=== PATIENT | female | born 1945 | race Caucasian/White ===

== ENCOUNTER 2016-03-21 13:39 | Emergency (ER) | payer MEDICARE, MEDICAID ==
[~2016-03-21] VITALS: Ht 162.6 cm; Wt 66.7 kg
[~2016-03-21 13:39] MED LIST: ADVAIR 10028 PUFF/IN IN; ADVAIR HFA1 AE1 INH; ALBUTEROL2.5 MG/NEB IN; ANTIDEPRESSANT PO; CHEWABLE ASPIRI81 MG PO; COMBIVENT INH14.7 G1 INH; COMBIVENT INH14.7 GM IN; COZAAR50 MG PO; DELSYM30 MG/5 ML PO; FLEXERIL10 MG PO; FOLIC ACID 1MG T1 MG; HYDROCODONE 7.51 TAB PO; MEGACE LIQUI40 MG/ML PO; POTASSIUM CHLO20 MEQ PO; PROTONIX 40MG T40 MG PO; PROZAC 20MG CAP20 MG PO; REGLAN 10 MG TA10 MG PO; ULTRAM50 MG PO; ZANTAC150 M1 PO; ZOFRAN ODT8 MG PO; [UNRECOGNIZED DRUG - OTHER] PO; [UNRECOGNIZED DRUG - REMARK] PO
[2016-03-21 14:27] LABS: HEMOGLOBIN 9.6 g/dL (12.2-16.2); LYMPH # 1.1 K/mm3 (0.7-4.5); LYMPH % 15.1 % (10-50.0)
--- NOTE | 2016-03-21 14:35 | Emergency Room Report ---
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 N Clinical Suspician of Infection? N Mental Status: 1 - Regular (Normal Baseline) Sepsis Risk:Low Sepsis Risk Have you (or family members/close friends) recently traveled outside the [place]? N If Yes, where/when: Have you had exposure to infectious disease within the past month? TB? Other? Specify: Source patient, RN notes reviewed Exam Limitations no limitations Comment Comes to the ED with nosebleeds for the past 3 days and says she has passed some large clots that have come out of her mouth. Not bleeding at this time. She has been on home O2 for about 3 to 4 years...no pain and no fever. She also is lung cancer survivor from Stage 4 lung cancer. She quit smoking about 4 years ago Cardiac Chest Pain Chest pain indicative of cardiac No ALLERGIES Coded Allergies: latex (Mild, 03/21/16) naproxen (Mild, 03/21/16) Home Medications Reported Medications Fluoxetine Hcl (Prozac 20MG Capsule(Generic)) 1 TAB PO DAILY Losartan Potassium (Cozaar) 1 TAB PO DAILY FLUTICASONE/SALMETEROL (Advair Hfa 230-21 Mcg Inhaler) 1 INH BID Albuterol-Ipratropium (Combivent Inhaler) 1 INH QID Pantoprazole Sodium (Protonix 40MG TAB) 40 MG PO DAILY ALBUTEROL (Albuterol 0.083% Neb) 2.5 MG IN QID #120 NEB HYDROCODONE/ACETAMINOPHEN (Hydrocodon-Acetaminoph 7.5-500) 1-2 TAB PO Q6HP Ranitidine Hydrochloride (Zantac) 150 MG PO DAILY Potassium Chloride 20 MEQ PO DAILY History Medical History General Angina: No [place]: No Hypertension? Yes Hyperlipidemia? No CHF? No COPD? Yes Asthma? Yes Hernia? No CVA? No Seizures? No Diabetes? No UTI? Yes Stones? No GB Disease: No Hepatitis? No Cataracts? No Glaucoma? No MRSA? No TB? No Cancer? Yes Site: RIGHT LUNG Immunization Hx DT/Tetanus 5-10 YRS Flu LAST YEAR Pneumonia 1-4 YRS Surgical Hx Previous Surgery?Y TONSILECTOMY HYSTERECTOMY TUBAL LIGATION LUNG BIOPSY Family History Family Hx Diabetes Yes CAD No Hypertension Yes Hyperlipidemia Yes Cancer Yes TB No Social History Smoking Hx Smoker: Never Smoker Tobacco: No Type N/A Are you/the child exposed to second-hand smoke: No Alcohol Alcohol: No Review of Systems All Other Systems Reviewed and Negative Constitutional see HPI ENT see HPI. Respiratory see HPI Physical Exam Vital Signs Vital Signs Date Time Temp Pulse Resp B/P Pulse O2 O2 Flow FiO2 Ox Delivery Rate 03/21 1502 90 18 131/65 98 3 03/21 1439 88 18 157/82 98 03/21 1346 92 18 161/83 98 03/21 1343 92 18 16183 92 General Appearance normal appearance, WD/WN, no apparent distress Ear, Nose, Throat normal ENT inspection (at this time) Respiratory Status No: respiratory distress. 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 No Results/Orders Laboratory Tests 03/21/16 1403: Sodium 138, Potassium 4.0, Chloride 101, Carbon Dioxide 30, BUN 21 H, Creatinine 1.1 H, Estimated Creat Clear 49 L, Estimated GFR (MDRD) 49 L, Glucose 110 H, Calcium 11.1 H, Total Bilirubin 0.3, AST 18, ALT 29, Alkaline Phosphatase 116, Total Protein 7.6, Albumin 3.4, Globulin 4.2 H, Albumin/ Globulin Ratio 0.8 L, WBC 7.2, RBC 2.81 L, Hgb 9.6 L, Hct 26.6 L, MCV 94.9, RDW 13.5, Plt Count 458 H, MPV 5.6 L, Gran % 80.4 H, Gran # 5.8, Lymphocytes % 15.1, Monocytes % 3.8, Eosinophils % 0.4, Basophils % 0.3, Lymphocytes # 1.1, Monocytes # 0.3, Eosinophils # 0.0, Basophils # 0.0, PUBS MCHC 36.0 H, MCH 34.1 H Current Medication Orders Sig/Juan A Start time Last Medication Dose Route Stop Time Status Admin Iopamidol 100 ML ONCE ONE 03/21 1615 UNV 03/21 IV 03/21 1616 1530 Sodium Chloride 10 ML ONCE ONE 03/21 1615 UNV 03/21 IV 03/21 1616 1530 Sodium Chloride 1,000 ML .STK-MED ONE 03/21 1456 DC IV Sodium Chloride 1,000 ML .Q4H 03/21 1445 AC 03/21 IV 03/21 1844 1458 Sodium Chloride 10 ML PRN PRN 03/21 1445 AC IV 03/22 1443 Sodium Chloride 10 ML PRN PRN 03/21 1430 AC IV 03/22 1417 Orders Procedure Date/time Status CT SCAN REQUEST 03/21 1443 Complete IV SALINE LOCK 03/21 141 Active CBC WITH AUTO DIFF 03/21 141 Complete CHEM 12 PROFILE 03/21 141 Complete XRAY/CT/US XRAY/CT/US CT sinus CT interpretation by discussed w/radiologist Time results known: 1616 CT Results No obvious Nasopharyngeal mass. Unremarkable sinuses. Left nasal septal deviation. 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 Slightly increased soft tissue density at base of the tongue on the right...recommends direct visualization Departure Departure Time of Disposition 1617 Disposition DC Home or Self Care(routine) Clinical Impression Primary Impression: Epistaxis Condition STABLE Referrals Lillie Grewal APRN (Family): 3 Days-Call Office Patient Instructions DI for Nosebleed, Nosebleed, Nosebleeds (Alternative Therapy) Additional Instructions Given Bactroban ointment to coat the nasal passages daily and advised to followup to get direct visualization of base of tongue Discharge Counseling Counseled pt/family regarding diagnosis, test results, medications/RX, home care, follow up needs Prescriptions Current Visit Scripts MUPIROCIN 2% (Bactroban Oint) 0 GM TP DAILY #1 TUBE Ref 3 ED Critical Care Critical Care No If Critical Care minutes are documented, the time involved in the performance of seperately reportable procedures was not counted toward critical care time documented. I directly delivered medical care to this critically ill and/or injured patient. Timely evaluation and treatment was necessary to address the significant organ system(s) dysfunction present in this patient. at 1620
--- NOTE | 2016-03-21 15:58 | RADIOLOGY REPORT PS360 ---
CT MAXILLOFACIAL W/CONTRAST CLINICAL INDICATION: NOSEBLEED ORDERING PHYSICIAN: David Chandra MD PATIENT AGE: 71 years COMPARISON: None FINDINGS: Maxillary sinuses have an unremarkable appearance. There is a small right ojrgito bullosa. The ostiomeatal units are patent. No sinus air-fluid level or sinus mass evident. No obvious nasal or nasopharyngeal mass. There are some asymmetric soft tissue density toward the base of the time on the right of questionable clinical significance. Correlation with direct visualization recommended. No adenopathy, destructive bony lesion, or fracture evident. The orbits have an unremarkable appearance. There is moderate leftward nasal septal deviation with a septal spur projecting toward the left. There is anterior subluxation/dislocation of the right temporomandibular joint. 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 No obvious nasopharyngeal mass. Unremarkable sinuses. 2. Leftward nasal septal deviation. 3. 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 4. Slight increased soft tissue density toward the base of the tongue on the right. Direct visualization recommended
--- NOTE | 2016-03-21 15:58 | RADIOLOGY REPORT PS360 ---
CT MAXILLOFACIAL W/CONTRAST CLINICAL INDICATION: NOSEBLEED ORDERING PHYSICIAN: David Chandra MD PATIENT AGE: 71 years COMPARISON: None FINDINGS: Maxillary sinuses have an unremarkable appearance. There is a small right jorgito bullosa. The ostiomeatal units are patent. No sinus air-fluid level or sinus mass evident. No obvious nasal or nasopharyngeal mass. There are some asymmetric soft tissue density toward the base of the time on the right of questionable clinical significance. Correlation with direct visualization recommended. No adenopathy, destructive bony lesion, or fracture evident. The orbits have an unremarkable appearance. There is moderate leftward nasal septal deviation with a septal spur projecting toward the left. There is anterior subluxation/dislocation of the right temporomandibular joint. 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 No obvious nasopharyngeal mass. Unremarkable sinuses. 2. Leftward nasal septal deviation. 3. 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 4. Slight increased soft tissue density toward the base of the tongue on the right. Direct visualization recommended
[2016-03-21] MEDS ORDERED: BACTROBAN2% TP (16:20)
[2016-03-21 16:25] VITALS: BP 123/70
== END 2016-03-21 16:26 | disposition home or self-care (01) ==
LOC: ER 13:39
PROVIDERS: General Practice
DX: R04.0 Epistaxis (principal); Z85.118 Personal history of other malignant neoplasm of bronchus and lung; I10 Essential (primary) hypertension; J44.9 Chronic obstructive pulmonary disease, unspecified

== ENCOUNTER → 2016-10-26 | Outpatient (CLI) | payer MEDICARE, MEDICAID ==
[~2016-10-26] MED LIST changes: +ADVAIR 250/5028 PUFF IN; +AVELOX400 MG PO; +AZITHROMYCIN250 MG PO; +BACTROBAN2% TP; +CYCLOBENZAPRINE10 MG PO; +DALIRESP500 MCG PO; +FLONASE 50 MCG16 GM; +HYDROCHLOROTHIA25 M1 PO; +HYDROXYZINE HYD50 MG PO; +IRON TABLETS325 MG PO; +LEVAQUIN500 MG PO; +MEDROL 4MG. DOSE4 MG PO; +METOCLOPRAMIDE H5 MG PO; +PREDNISONE 20MG20 MG PO; +VITAMIN D31000 IU PO
--- NOTE | 2016-10-26 12:21 | RADIOLOGY REPORT PS360 ---
BONE DENSITOMETRY(HIP:LT SPINE HISTORY: OSTEOPOROSIS ORDERING PHYSICIAN: TAY OWENS PATIENT AGE: 71 years COMPARISON: None FINDINGS: The BMD measured at the right femoral neck is -5.92 g/cm squared with a T score of -3.2. This is considered osteoporotic according to the World Health Organization criteria. Fracture risk is high. Treatment should be initiated not already prescribed. The density of the lumbar spine from L1 to L4 0.818 g percent meters squared with a T score of -3.0 also consistent with osteoporosis. IMPRESSION: Osteoporosis. Recommend follow-up exam October 2017
== END ==
LOC: RAD 10:00
DX: M81.0 Age-related osteoporosis without current pathological fracture (principal)

== ENCOUNTER 2017-01-09 16:55 | Emergency (ER) | payer MEDICARE, MEDICAID ==
[~2017-01-09] VITALS: Ht 162.6 cm; Wt 64.9 kg
--- NOTE | 2017-01-09 17:48 | Emergency Room Report ---
History of Present Illness Time Seen by 170 Presenting Problem in Triage Pt arrived:Wheelchair Presenting Problem:PT C/O SOA THAT IS WORSE THAN NORMAL. 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 N Clinical Suspician of Infection? N Mental Status: 1 - Regular (Normal Baseline) Sepsis Risk:Possible Sepsis RiskN Have you (or family members/close friends) recently traveled outside the [place]? N If Yes, where/when: Have you had exposure to infectious disease within the past month? N TB? Other? Specify: Comment The patient is brought in by family for dyspnea. Much of the history is obtained from the patient's granddaughter, who is an Intensive Care Unit nurse the [facility]. The patient was hospitalized here in June for an exacerbation of chronic obstructive pulmonary disease. Family does not feel that she ever recovered from that and has been steadily declining with increasing shortness of breath. Initially started as dyspnea on exertion but has been getting worse to where it now takes very minimal exertion to become very short of breath. She has a lot of wheezing with it. She also complains of shakiness and generalized weakness and has fallen several times. She has swelling of her ankles as well. She is oxygen dependent. She is on nebulizers and inhalers at home. She has been on steroids and Levaquin for about a week. She is also maintained on Zithromax. She is a former smoker. ALLERGIES Coded Allergies: latex (Mild, 03/21/16) naproxen (Mild, 03/21/16) Home Medications Active Scripts MUPIROCIN 2% (Bactroban Oint) 0 GM TP DAILY #1 TUBE Ref 3 Prov: 03/21/16 Reported Medications Fluoxetine Hcl (Prozac 20MG Capsule(Generic)) 20 MG PO DAILY Losartan Potassium (Cozaar) 50 MG PO DAILY ALBUTEROL (Albuterol 0.083% Neb) 2.5 MG IN QID #120 NEB FLUTICASONE/SALMETEROL (Advair 250-50 Diskus) 1 PUFF IN BID Roflumilast (Daliresp) 500 MCG PO DAILY Prednisone (Prednisone 20MG) 20 MG PO BID HYDROXYZINE HCL (Hydroxyzine Hydrochloride) 50 MG PO QIDP PRN ANXIETY HYDROCODONE/ACETAMINOPHEN (Hydrocodon-Acetaminoph 7.5-500) 1-2 TAB PO Q6HP Pantoprazole Sodium (Protonix 40MG TAB) 40 MG PO BID Cyclobenzaprine Hcl (Cyclobenzaprine 10MG) 10 MG PO TID PRN MUSCLE SPASMS Fluticasone Propionate (Flonase 50 Mcg Nasal [place]) 1 SPRAY NA BID CHOLECALCIFEROL (VITAMIN D3) (Vitamin D) 1,000 IUNITS PO DAILY HYDROCHLOROTHIAZIDE (Hydrochlorothiazide) 25 MG PO DAILY Ferrous Sulfate (Iron Tablet) 325 MG PO DAILY History Medical History General CAD? No Angina: No [place]: No Hypertension? Yes Hyperlipidemia? No CHF? No DVT? No PE? No COPD? Yes Asthma? Yes Anemia? Yes GERD? Yes Gastric ulcers? No GI Bleed? No Hernia? No Thyroid Problems? No Hypothyroidism? No CVA? No Seizures? No Diabetes? No End Stage Renal Disease? No UTI? Yes Stones? No GB Disease: No Nephritic Syndrome? No Asplenia? No Hepatitis? No Sickle Cell Disease? No Arthritis? No Migraines? No Cataracts? No Glaucoma? No MRSA? No HIV? No TB? No Anxiety? No Depression? No Cancer? Yes Site: RIGHT LUNG More? No Immunization Hx DT/Tetanus 5-10 Years Ago Flu LAST YEAR Pneumonia Received In Past Surgical Hx Previous Surgery?Y TONSILECTOMY HYSTERECTOMY TUBAL LIGATION LUNG BIOPSY Family History Family Hx Diabetes Yes CAD No Hypertension Yes Hyperlipidemia Yes Cancer Yes TB No Social History Smoking Hx Smoker: Former Smoker Tobacco: Yes Type Cigarettes Packs/day < 1 Pack Alcohol Alcohol: No Review of Systems All Other Systems Reviewed and Negative Constitutional see HPI, weakness Respiratory cough, shortness of breath, wheezing Cardiovascular edema Physical Exam Vital Signs Vital Signs Date Time Temp Pulse Resp B/P Pulse O2 O2 Flow FiO2 Ox Delivery Rate 01/09 1900 98.4 99 20 101/63 99 01/09 1821 98.4 99 20 101/63 99 01/09 1702 98.7 106 22 120/65 96 General Appearance no apparent distress, sitting in wheelchair, on oxygen Eye Exam - bilateral eye normal exam, bilateral eye PERRL, bilateral eye EOMI Ear, Nose, Throat hearing grossly normal, normal ENT inspection Neck normal inspection, non-tender, supple, full range of motion Respiratory Status Yes: trachea midline, chest symmetrical. No: respiratory distress. Lung Sounds bilateral: wheezing (few wheezes in the apices). 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 No Results/Orders Laboratory Tests 01/09/17 1746: VBG pH 7.55 H, VBG Total CO2 20.9 L, VBG O2 Sat (Calc) Pending, VBG Base Excess -2.3, Mixed VBG pCO2 23.7 L, Mixed VBG pO2 168.1 H, Mixed VBG HCO3 20.1 L 01/09/17 1725: Lactic Acid 2.0 01/09/17 172: Troponin I < 0.02, B-Natriuretic Peptide 73 01/09/17 172: Sodium 136, Potassium 3.7, Chloride 99, Carbon Dioxide 29, BUN 27 H, Creatinine 1.6 H, Estimated Creat Clear 33 L, Estimated GFR (MDRD) 32 L, Glucose 102, Calcium 8.9, Total Bilirubin 0.5, AST 18, ALT 14, Alkaline Phosphatase 61, Total Protein 7.1, Albumin 3.6, Globulin 3.5 H, Albumin/Globulin Ratio 1.0 L, WBC 9.9, RBC 3.36 L, Hgb 10.2 L, Hct 31.7 L, MCV 94.4, RDW 13.8, Plt Count 427 H , MPV 7.1 L, Gran % 77.2, Gran # 7.7, Lymphocytes % 15.7, Monocytes % 6.7, Eosinophils % 0.3, Basophils % 0.0 L, Lymphocytes # 1.6, Monocytes # 0.7, Eosinophils # 0.0, Basophils # 0.0, PUBS MCHC 31.8, MCH 30.0 Current Medication Orders Sig/Juan A Start time Last Medication Dose Route Stop Time Status Admin Methylprednisolone 0 .STK-MED ONE 01/09 185 DC Sodium Succinate .ROUTE Methylprednisolone 125 MG ONCE ONE 01/09 184 DC 01/09 Sodium Succinate IV 01/09 1846 185 Albuterol/Ipratropium 0 .STK-MED ONE 01/09 171 DC INH Albuterol/Ipratropium 3 ML ONCE ONE 01/09 1715 DC 01/09 INH 01/10 1716 171 Sodium Chloride 10 ML PRN PRN 01/09 171 DCD IV 01/10 170 Orders Procedure Date/time Status ELECTROCARDIOGRAM REQUEST 01/09 175 Active TROPONIN I 01/09 175 Complete BRAIN NATRIURETIC PEPTIDE 01/09 175 Complete VENOUS BLOOD GAS 01/09 174 Active VENOUS BLOOD GAS 01/09 173 Active ARTERIAL BLOOD GAS REQUEST 01/09 170 Active CHEST(2 VIEWS-NOT PORTABLE) 01/09 170 Active RT REQUEST DUONEB 01/09 170 Active IV SALINE LOCK 01/09 1707 Active CULTURE, BLOOD 01/09 1707 Active LACTIC ACID 01/09 170 Complete CBC WITH AUTO DIFF 01/09 1707 Complete CHEM 12 PROFILE 01/09 170 Complete [facility] 01/09 UNK Active CM/EKG CM/EKG Comments EKG interpreted by Marcus Bravo MD: Rhythm: sinus tachycardia Rate: 102 [place]: normal Ectopy: none Conduction: normal ST Segment Changes: none T Wave Changes: none Q Waves: none No evidence of acute ischemia or injury XRAY/CT/US XRAY/CT/US XRAY chest Comment X-ray interpreted by Marcus Bravo M.D.: chronic obstructive pulmonary disease, scarring RIGHT apex, calcified mediastinal lymph node, no change Progress - 6:30 PM: Discussed findings with patient and family. The patient does not want to be admitted to the hospital. She is agreeable to a dose of intravenous steroids and restarting a prednisone taper. She has an appointment with her mechanical process engineer on January 15. Departure Departure Disposition DC Home or Self Care(routine) Clinical Impression Primary Impression: Chronic obstructive pulmonary disease with (acute) exacerbation Condition STABLE Referrals Lillie Grewal APRN (Family) Patient Instructions DI for Chronic Obstructive Pulmonary Disease Additional Instructions Restart prednisone taper as prescribed. See your mechanical process engineer on 01/15/[address] [place]don on Wednesday to arrange follow-up. Continue other medications and treatment as previous. Return if worsening shortness of breath, chest pain, fever. Prescriptions Current Visit Scripts Prednisone (Prednisone 10MG) 10 MG PO DAILY #27 TAB 6 po on days 1-2, then decrease dose by 1 pill per day until gone ED Critical Care Critical Care No at 1951
--- NOTE | 2017-01-09 17:48 | Emergency Room Report ---
History of Present Illness Time Seen by 170 Presenting Problem in Triage Pt arrived:Wheelchair Presenting Problem:PT C/O SOA THAT IS WORSE THAN NORMAL. 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 N Clinical Suspician of Infection? N Mental Status: 1 - Regular (Normal Baseline) Sepsis Risk:Possible Sepsis RiskN Have you (or family members/close friends) recently traveled outside the [place]? N If Yes, where/when: Have you had exposure to infectious disease within the past month? N TB? Other? Specify: Comment The patient is brought in by family for dyspnea. Much of the history is obtained from the patient's granddaughter, who is an Intensive Care Unit nurse the [facility]. The patient was hospitalized here in June for an exacerbation of chronic obstructive pulmonary disease. Family does not feel that she ever recovered from that and has been steadily declining with increasing shortness of breath. Initially started as dyspnea on exertion but has been getting worse to where it now takes very minimal exertion to become very short of breath. She has a lot of wheezing with it. She also complains of shakiness and generalized weakness and has fallen several times. She has swelling of her ankles as well. She is oxygen dependent. She is on nebulizers and inhalers at home. She has been on steroids and Levaquin for about a week. She is also maintained on Zithromax. She is a former smoker. ALLERGIES Coded Allergies: latex (Mild, 03/21/16) naproxen (Mild, 03/21/16) Home Medications Active Scripts MUPIROCIN 2% (Bactroban Oint) 0 GM TP DAILY #1 TUBE Ref 3 Prov: 03/21/16 Reported Medications Fluoxetine Hcl (Prozac 20MG Capsule(Generic)) 20 MG PO DAILY Losartan Potassium (Cozaar) 50 MG PO DAILY ALBUTEROL (Albuterol 0.083% Neb) 2.5 MG IN QID #120 NEB FLUTICASONE/SALMETEROL (Advair 250-50 Diskus) 1 PUFF IN BID Roflumilast (Daliresp) 500 MCG PO DAILY Prednisone (Prednisone 20MG) 20 MG PO BID HYDROXYZINE HCL (Hydroxyzine Hydrochloride) 50 MG PO QIDP PRN ANXIETY HYDROCODONE/ACETAMINOPHEN (Hydrocodon-Acetaminoph 7.5-500) 1-2 TAB PO Q6HP Pantoprazole Sodium (Protonix 40MG TAB) 40 MG PO BID Cyclobenzaprine Hcl (Cyclobenzaprine 10MG) 10 MG PO TID PRN MUSCLE SPASMS Fluticasone Propionate (Flonase 50 Mcg Nasal [place]) 1 SPRAY NA BID CHOLECALCIFEROL (VITAMIN D3) (Vitamin D) 1,000 IUNITS PO DAILY HYDROCHLOROTHIAZIDE (Hydrochlorothiazide) 25 MG PO DAILY Ferrous Sulfate (Iron Tablet) 325 MG PO DAILY History Medical History General CAD? No Angina: No HI: No Hypertension? Yes Hyperlipidemia? No CHF? No DVT? No PE? No COPD? Yes Asthma? Yes Anemia? Yes GERD? Yes Gastric ulcers? No GI Bleed? No Hernia? No Thyroid Problems? No Hypothyroidism? No CVA? No Seizures? No Diabetes? No End Stage Renal Disease? No UTI? Yes Stones? No GB Disease: No Nephritic Syndrome? No Asplenia? No Hepatitis? No Sickle Cell Disease? No Arthritis? No Migraines? No Cataracts? No Glaucoma? No MRSA? No HIV? No TB? No Anxiety? No Depression? No Cancer? Yes Site: RIGHT LUNG More? No Immunization Hx DT/Tetanus 5-10 Years Ago Flu LAST YEAR Pneumonia Received In Past Surgical Hx Previous Surgery?Y TONSILECTOMY HYSTERECTOMY TUBAL LIGATION LUNG BIOPSY Family History Family Hx Diabetes Yes CAD No Hypertension Yes Hyperlipidemia Yes Cancer Yes TB No Social History Smoking Hx Smoker: Former Smoker Tobacco: Yes Type Cigarettes Packs/day < 1 Pack Alcohol Alcohol: No Review of Systems All Other Systems Reviewed and Negative Constitutional see HPI, weakness Respiratory cough, shortness of breath, wheezing Cardiovascular edema Physical Exam Vital Signs Vital Signs Date Time Temp Pulse Resp B/P Pulse O2 O2 Flow FiO2 Ox Delivery Rate 01/09 1900 98.4 99 20 101/63 99 01/09 1821 98.4 99 20 101/63 99 01/09 1702 98.7 106 22 120/65 96 General Appearance no apparent distress, sitting in wheelchair, on oxygen Eye Exam - bilateral eye normal exam, bilateral eye PERRL, bilateral eye EOMI Ear, Nose, Throat hearing grossly normal, normal ENT inspection Neck normal inspection, non-tender, supple, full range of motion Respiratory Status Yes: trachea midline, chest symmetrical. No: respiratory distress. Lung Sounds bilateral: wheezing (few wheezes in the apices). 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 No Results/Orders Laboratory Tests 01/09/17 1746: VBG pH 7.55 H, VBG Total CO2 20.9 L, VBG O2 Sat (Calc) Pending, VBG Base Excess -2.3, Mixed VBG pCO2 23.7 L, Mixed VBG pO2 168.1 H, Mixed VBG HCO3 20.1 L 01/09/17 1725: Lactic Acid 2.0 01/09/17 172: Troponin I < 0.02, B-Natriuretic Peptide 73 01/09/17 172: Sodium 136, Potassium 3.7, Chloride 99, Carbon Dioxide 29, BUN 27 H, Creatinine 1.6 H, Estimated Creat Clear 33 L, Estimated GFR (MDRD) 32 L, Glucose 102, Calcium 8.9, Total Bilirubin 0.5, AST 18, ALT 14, Alkaline Phosphatase 61, Total Protein 7.1, Albumin 3.6, Globulin 3.5 H, Albumin/Globulin Ratio 1.0 L, WBC 9.9, RBC 3.36 L, Hgb 10.2 L, Hct 31.7 L, MCV 94.4, RDW 13.8, Plt Count 427 H , MPV 7.1 L, Gran % 77.2, Gran # 7.7, Lymphocytes % 15.7, Monocytes % 6.7, Eosinophils % 0.3, Basophils % 0.0 L, Lymphocytes # 1.6, Monocytes # 0.7, Eosinophils # 0.0, Basophils # 0.0, PUBS MCHC 31.8, MCH 30.0 Current Medication Orders Sig/Juan A Start time Last Medication Dose Route Stop Time Status Admin Methylprednisolone 0 .STK-MED ONE 01/09 185 DC Sodium Succinate .ROUTE Methylprednisolone 125 MG ONCE ONE 01/09 184 DC 01/09 Sodium Succinate IV 01/09 1846 185 Albuterol/Ipratropium 0 .STK-MED ONE 01/09 171 DC INH Albuterol/Ipratropium 3 ML ONCE ONE 01/09 1715 DC 01/09 INH 01/10 1716 171 Sodium Chloride 10 ML PRN PRN 01/09 171 DCD IV 01/10 170 Orders Procedure Date/time Status ELECTROCARDIOGRAM REQUEST 01/09 175 Active TROPONIN I 01/09 175 Complete BRAIN NATRIURETIC PEPTIDE 01/09 175 Complete VENOUS BLOOD GAS 01/09 174 Active VENOUS BLOOD GAS 01/09 173 Active ARTERIAL BLOOD GAS REQUEST 01/09 170 Active CHEST(2 VIEWS-NOT PORTABLE) 01/09 170 Active RT REQUEST DUONEB 01/09 170 Active IV SALINE LOCK 01/09 1707 Active CULTURE, BLOOD 01/09 1707 Active LACTIC ACID 01/09 170 Complete CBC WITH AUTO DIFF 01/09 1707 Complete CHEM 12 PROFILE 01/09 170 Complete 12 LEAD [facility] 01/09 UNK Active CM/EKG CM/EKG Comments EKG interpreted by Marcus Bravo MD: Rhythm: sinus tachycardia Rate: 102 [place]: normal Ectopy: none Conduction: normal ST Segment Changes: none T Wave Changes: none Q Waves: none No evidence of acute ischemia or injury XRAY/CT/US XRAY/CT/US XRAY chest Comment X-ray interpreted by Marcus Bravo M.D.: chronic obstructive pulmonary disease, scarring RIGHT apex, calcified mediastinal lymph node, no change Progress - 6:30 PM: Discussed findings with patient and family. The patient does not want to be admitted to the hospital. She is agreeable to a dose of intravenous steroids and restarting a prednisone taper. She has an appointment with her circulation director on January 15. Departure Departure Disposition DC Home or Self Care(routine) Clinical Impression Primary Impression: Chronic obstructive pulmonary disease with (acute) exacerbation Condition STABLE Referrals Lillie Grewal APRN (Family) Patient Instructions DI for Chronic Obstructive Pulmonary Disease Additional Instructions Restart prednisone taper as prescribed. See your circulation director on 01/15/[address] Herndon on Wednesday to arrange follow-up. Continue other medications and treatment as previous. Return if worsening shortness of breath, chest pain, fever. Prescriptions Current Visit Scripts Prednisone (Prednisone 10MG) 10 MG PO DAILY #27 TAB 6 po on days 1-2, then decrease dose by 1 pill per day until gone ED Critical Care Critical Care No at 1951
[2017-01-09 17:50] LABS: HEMOGLOBIN 10.2 g/dL (12.2-16.2); LYMPH # 1.6 K/mm3 (0.7-4.5); LYMPH % 15.7 % (10-50.0)
--- OUTSIDE RECORDS SUMMARY | 2017-01-09 17:52 | External Medical Summary Rpt | CCD ---
Author Author , ROCÍO Organization ROCÍO Address Unknown Phone [email or web address] [email or web address] Care Team Providers Care Habilitation Training Specialist Name Role Phone A Ashkan CALDWELL MD PSC, Erasmo Unavailable Unavailable Ashkan CALDWELL MD PSC Joaquin CHRISTIE, Unavailable Unavailable Joaquin CHRISTIE, AMANDA Unavailable Unavailable LOW ARNOLD KIMMY, ARNOLD Unavailable Unavailable KIMMY ATTILI ANI, ATTILI Unavailable Unavailable ANI [facility], [facility] Unavailable Unavailable [facility] Unavailable Unavailable [place], [facility] Unavailable Unavailable MEDICAL GROUP, [facility] Unavailable Unavailable [facility] BROWN DIONICIO, [facility]OWN D[facility]ICIO Unavailable Unavailable [facility], Unavailable Unavailable [facility] Unavailable Unavailable [facility]OC, [facility], Unavailable Unavailable [facility] CROSSFIELD, DANNITA, Unavailable Unavailable CROSSFIELD, DANNITA ANDREI CHARLES, Unavailable Unavailable ANDREI CHARLES [facility], Unavailable Unavailable [facility], [facility] Unavailable Unavailable WOODSON JERICA, Unavailable Unavailable WOODSON JERICA [facility] Unavailable Unavailable INC, [facility] Unavailable Unavailable HOSPITAL P, [facility] [place] HYACINTH, [facility] HYAC[facility] Unavailable Unavailable [place] JAYESH A, Unavailable Unavailable [place] JAYESH A [facility], Unavailable Unavailable [facility] Unavailable Unavailable [facility] Unavailable Unavailable [facility] Unavailable Unavailable [facility], [facility] KILPELA JEA, KILPELA Unavailable Unavailable JEA EVELYN CHARITY, EVELYN CHARITY Unavailable Unavailable [facility] Unavailable Unavailable [facility], [facility] FARZANA ILIR, FARZANA Unavailable Unavailable ILIR ALISIA ANT, ALISIA Unavailable Unavailable ANT OTILIA PAT, OTILIA Unavailable Unavailable PAT RHONA JERICA, RHONA PIZANO Unavailable Unavailable [facility], Unavailable Unavailable PLL[facility], [facility] PAWSAT MAR, PAWSAT Unavailable Unavailable ANNIE GRIMM, Unavailable Unavailable ANNIE LOJA PURDOM MAT, PURDOM Unavailable Unavailable MAT [id number], Unavailable Unavailable [id number] Unavailable Unavailable [id number] [address] [id number], [facility] [id number] [address] [id number] JONAS LEON, JONAS Unavailable Unavailable [facility] Unavailable Un[facility], [facility], Unavailable [facility]available [facility], Unavailable Unavailable [facility] Unavailable [facility]available [facility] Unavailable Unavailable #591, [id number], Unavailable Unavailable [facility] Gabino Carrion Unavailable Enrrique CARRANZA MD, Gabino MOLINA [facility], TRACY Unavailable Unavailable [facility]IS MIG[facility], Unavailable Unavailable [facility] Purpose Continuity of Care Document - 05-02-2007 through 2016 Problems Code Diagnosis DOS Provider Status [id number] MALIGNANT 10-27-2016 [facility] UNS PART ASSOC RIGHT BRONCHUS/ARELY NG J984 OTHER 10-27-2016 [facility] [place] 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 10-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 [facility] PULMONARY [facility] NODULE [place] C3490 MALIGNANT 10-23-2016 [facility] NEOPLASM HOME UNS PART MEDICAL UNS EQUIPME BRONCHUS/ARELY NG J449 CHRONIC 10-23-2016 [facility] OBSTRUCTIVE HOME PULMONARY MEDICAL DISEASE UNS EQUIPME B3749 OTHER 09-23-2016 A Ashkan CALDWELL UROGENITAL PSC CANDIDIASIS G894 CHRONIC 09-23-2016 A Ashkan CALDWELL PAIN PSC SYNDROME J9610 CHRONIC 07-30-2016 [facility] FAIL [facility]OUNDATION HYPOXIA/HYP ERCAPNIA H57503 PERSONAL HX 07-30-2016 [facility] MALIG SERV NEOPLASM FOUNDATION BRONCHUS & LUNG R0602 SHORTNESS 07-07-2016 [facility] OF [facility] P I10 ESSENTIAL 06-19-2016 [facility]IMARY [facility] HYPERTENSIO INC N J209 ACUTE 06-19-2016 [facility] P J440 COPD WITH 06-19-2016 [facility] RESPIRATORY INFECTION J441 CHRONIC 06-19-2016 [facility] OBSTRUCTIVE [facility] P DZ W/EXACERBAT ION N289 DISORDER OF 06-19-2016 [facility], URETER PLLC UNSPECIFIED R0600 DYSPNEA 06-19-2016 [facility] UNSPECIFIED MEM HOSP INC T41644 PERSONAL 06-19-2016 [facility] HISTORY OF PHYSICIANS, NICOTINE PLLC DEPENDENCE Z9981 DEPENDENCE 06-19-2016 [facility] P L OXYGEN R05 COUGH 06-07-2016 [facility] R0989 OTH SPEC SX 06-07-2016 [place] & SIGNS MEDICAL INVLV THE IMAGING ASS CIRC & RESP SYS R918 OTHER 06-07-2016 [facility] NONSPECIFIC MEM HOS[facility] ABNORMAL INC FINDING OF LUNG FIELD Z48479 OTHER LONG 06-07-2016 [facility] TERM [facility]OS[facility] CURRENT INC DRUG THERAPY C3411 MALIGNANT 04-28-2016 [facility] NEOPLASM [facility] UPPER LOBE MEDICAL RT GROUP BRONCHUS/ARELY NG M810 AGE-RELATED 04-28-2016 [facility] OSTE[facility] MEDICAL S W/O GROUP CURRNT PATH FX R222 LOCALIZED 03-22-2016 [facility] MEDICAL MASS AND LUMP TRUNK R040 EPISTAXIS 03-21-2016 [facility] C3410 MALIGNANT 08-09-2015 [facility] NEOPLASM [facility] UPPER LOBE [place] UNS BRONCHUS/ARELY NG R49529 OTHER 08-09-2015 [facility] UNSPEC[facility] H6980 OTHER SPEC 03-18-2015 A Ashkan CALDWELL DISORDERS PSC EUSTACHIAN TUBE UNS EAR Z923 PERSONAL 02-13-2015 [facility] HISTORY OF [facility] IRRADIATION HOSP D649 ANEMIA 12-17-2014 [facility] UNSPECIFIED [facility]ALTH MEDICAL GROUP D44200 CUTANEOUS 11-21-2014 A Ashkan CALDWELL ABSCESS OF PSC LIMB UNSPECIFIED Z23 ENCOUNTER 11-21-2014 A Ashkan CALDWELL FOR PSC IMMUNIZATIO N M546 PAIN IN 11-15-2014 [facility] THORACIC RADIOLOGY SPINE ASSOC U4211RR PATHOLOGICA 11-15-2014 [facility] L FX OTH [facility] SITE [facility]OSP INITIAL ENC FRACTURE 24320 INTRINSIC 11-01-2014 [facility] ASTHMA, PHARMACY UNSPECIFIED LLC 496 CHRONIC 11-01-2014 [facility]CTION [facility] NEC 3384 CHRONIC 10-29-2014 A Ashkan CALDWELL PAIN PSC SYNDROME 51629 UNSPECIFIED 10-29-2014 A Ashkan CALDWELL OTALGIA PSC 7823 EDEMA 10-29-2014 A Ashkan CALDWELL MD [facility] 07417 NAUSEA 10-29-2014 A Ashkan WOODSON MD PSC 7866 SWELLING, 10-21-2014 [facility], [facility] MED[facility] LUMP IN CHEST 1629 MALIGNANT 09-20-2014 [facility] NEOPLASM MEDICAL BRONCHUS&ARELY NG UNSPEC SITE 1623 MALIGNANT 09-17-2014 [facility] NEOPLASM HEALTH UPPER LOBE MEDICAL BRONCHUS OR GROUP LUNG 2859 UNSPECIFIED 09-17-2014 [facility] ANEMIA [facility] GROUP V661 CONVALESCEN 09-17-2014 [facility] CE HEALTH FOLLOWING MEDICAL RADIOTHERAP GROUP Y V662 CONVALESCEN 09-17-2014 [facility] CE HEALTH FOLLOWING MEDICAL CHEMOTHERAP GROUP Y 30132 CHRONIC 09-10-2014 [facility] OBSTRUCTIVE [facility] ASTHMA HOSP UNSPECIFIED 57351 SENILE 09-10-2014 [facility] OSTEOPOROSI [facility] S HOSP V1011 PERSONAL 09-10-2014 [facility] HISTORY [facility] MALIG HOSP NEOPLASM BRONCHUS&[place] NG 22791 ESOPHAGEAL 08-20-2014 A Ashkan CALDWELL REFLUX PSC 87554 DISORDER OF 08-06-2014 [facility] BONE AND [facility] CART[facility]AGE HOS[facility] UNSPECIFIED 18105 LOSS OF 08-06-2014 [facility] HEIGHT [facility] 63402 PATHOLOGIC 06-14-2014 [facility] FRACTURE OF RADIOLOGY VERTEBRAE ASSOC 59785 OTHER 04-30-2014 A Ashkan WILLIAMSON MD PSC PAIN 4011 ESSENTIAL 04-25-2014 [facility] HYPERTENSIO [facility] N, BENIGN HOSP V5412 AFTERCARE 03-02-2014 [facility] FRACTURE LOWER ARM V5878 AFTERCARE 03-02-2014 [facility] FOLLOW PHYSICIANS SURGERY GROUP MUSCULOSKEL SYSTEM NEC V571 OTHER 02-16-2014 [facility] PHYSICAL [facility] THERAPY INC 7248 OTHER 01-26-2014 A Ashkan CALDWELL SYMPTOMS PSC REFERABLE TO BACK 8180 ILL-DEFINED 01-26-2014 A Ashkan RECIO MD PSC FRACTURES OF UPPER LIMB 07910 PAIN IN 01-18-2014 [place] [facility], [facility] FOREARM IMAGING ASS 85848 OTHER 01-18-2014 [facility] CLOSED [facility] FRACTURES HOSPITAL P OF DISTAL END OF RADIUS 24204 OPEN WOUND 01-18-2014 [facility] WITHOUT HOSPITAL P MENTION COMPLICATIO N E8889 UNSPECIFIED 01-18-2014 [facility] P 4019 UNSPECIFIED 01-17-2014 WM ESSENTIAL MEM HOSP HYPERTENSIO INC N 86143 ASTHMA, 01-17-2014 [facility] UNSPECIFIED MEM HOS[facility] , INC UNSPECIFIED STATUS 63956 CLOSED 01-17-2014 [facility] FRACTURE MEM HOSP UNSPECIFIED INC PART RAMUS MANDIBLE 9221 CONTUSION 01-17-2014 WM OF CHEST MEM HOSP WALL INC V1582 PERS HX 01-17-2014 [facility] TOBACCO USE MEM HOSP PRESENTING INC [facility]ZARDS HEALTH 7273 OTHER 01-08-2014 A Ashkan CALDWELL BURSITIS PSC DISORDERS 2662 OTHER 11-13-2013 A Ashkan CALDWELL B-COMPLEX PSC DEFICIENCIE S 5853 CHRONIC 10-30-2013 [facility] KIDNEY [facility] DISEASE INC STAGE III (MODERATE) 7944 NONSPECIFIC 10-30-2013 [facility] MEDICAL RESULTS IMAGING ASS KIDNEY FUNCTION STUDY 1122 CANDIDIASIS 10-26-2013 A Ashkan PALM MD PSC UROGENITAL SITES 2809 UNSPECIFIED 10-26-2013 A Ashkan CALDWELL IRON PSC DEFICIENCY ANEMIA V0481 NEED 10-26-2013 A Ashkan CALDWELL PROPHYLACTI 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 34215 OTHER 06-19-2013 ALISIA ANT DYSPNEA AND RESPIRATORY ABNORMALITI ES 7932 NONSPC ABN 06-19-2013 ALISIA ANT FINDNG RAD&OTH EXAM OTH INTRTHOR ORGN 06820 HYPOXEMIA 05-31-2013 [facility]IS DIONICIO 57245 NAUSEA WITH 05-25-2013 [facility] VOMITING [facility] 4928 OTHER 05-19-2013 [facility] EMPHYSEMA [facility] 7295 PAIN IN 05-19-2013 JONAS LEON SOFT TISSUES OF LIMB 24343 SWELLING OF 05-19-2013 [facility] LIMB [facility] V5869 LONG-TERM 05-19-2013 [facility] (CURRENT) [facility] USE OF HOSP OTHER MEDICATIONS 6828 CELLULITIS 05-15-2013 KILPELA JEA AND ABSCESS OF OTHER SPECIFIED SITE 7881 DYSURIA 05-08-2013 KILPELA JEA 7862 COUGH 04-14-2013 KILPELA JEA 44762 PAIN IN 02-20-2013 [facility] JOINT, [facility] LOWER LEG INC 9597 INJURY 02-09-2013 KILPELA JEA OTHER&UNSPE CIFIED KNEE LEG ANKLE&FOOT 35690 PAIN IN 12-05-2012 A Ashkan DUMONT MD PSC MULTIPLE SITES 50478 BURN TRUNK 12-05-2012 A Ashkan QUIROS MD PSC DEGREE OTHER&MULTI PLE SITES 490 BRONCHITIS 10-12-2012 A Ashkan ROBERTS MD PSC SPECIFIED ACUTE OR CHRONIC 1625 MALIGNANT 09-21-2012 [facility] NEOPLASM [facility] LOWER LOBE HOSP BRONCHUS OR LUNG V671 RADIOTHERAP 09-21-2012 [facility] Y FOLLOW-UP [facility] EXAMINATION V672 CHEMOTHERAP 09-21-2012 [facility] Y [facility]LLOW-UP [facility] EXAMINATION 4660 ACUTE 07-28-2012 A Ashkan CALDWELL BRONCHITIS PSC 3383 NEOPLASM 07-19-2012 BADIN FIR RELATED PAIN ACUTE CHRONIC V580 RADIOTHERAP 07-19-2012 [facility] Y [facility] 93088 CHRONIC 07-09-2012 [facility] RESPIRATORY MEM HOSP FAILURE INC 71343 UNSPECIFIED 06-27-2012 A Ashkan CALDWELL MD PSC OSTEOPOROSI S 93099 WHEEZING 06-27-2012 A Ashkan CALDWELL MD PSC 5271 HYPERTROPHY 04-14-2012 [facility] OF [facility] SALIVARY [facility]OS[facility] GLAND 4779 ALLERGIC 04-11-2012 KILPELA JEA RHINITIS CAUSE UNSPECIFIED 7820 DISTURBANCE 04-11-2012 KILPELA JEA OF SKIN SENSATION 4619 ACUTE 03-23-2012 KILPELA JEA SINUSITIS, UNSPECIFIED 05311 URINARY 03-23-2012 KILPELA JEA FREQUENCY 162.9 162.9 MAL 03-14-2012 [facility] WEND[facility] BRONCH/LUNG Hospital NOS 285.9 285.9 03-14-2012 [facility] ANEMIA NOS [facility] 401.9 401.9 03-14-2012 [facility] HYPERTENSIO [facility] Hospital 780.79 780.79 OTH 03-14-2012 [facility] MALAISE&FAT [facility] IGUE Hospital 787.02 787.02 03-14-2012 [facility] NAUSEA [facility] V5811 ENCOUNTER 02-16-2012 [facility] FOR [facility] ANTINEOPLAS HOSP TIC CHEMOTHERAP Y 5122 POSTOPERATI 01-14-[place] [address] OTHER 01-14-2012 TRACY LUIS MIGUEL PNEUMOTHORA X 5119 UNSPECIFIED 01-07-2012 ATTILI ANI PLEURAL EFFUSION 1970 SECONDARY 01-06-2012 AMANDA LOW MALIGNANT NEOPLASM OF LUNG V550 ATTENTION 12-28-2011 KING CHARITY TO TRACHEOSTOM Y 5180 PULMONARY 12-26-2011 DISANTIS COLLAPSE [place] 52468 EMPHYSEMA 12-26-2011 DISANTIS RESULTING LYNNETTE FROM A PROCEDURE NEC 1639 MALIGNANT 12-25-2011 [place] [facility]OP[facility] UNSPECIFIED SITE V679 UNSPECIFIED 12-25-2011 ATTILI ANI FOLLOW-UP EXAMINATION V8801 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-2011 [facility]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 66216 GENERALIZED 12-17-2011 FARZANA ILIR OSTEOARTHRO SIS UNSPECIFIED SITE 24971 OSTEOARTHRO 12-16-2011 [facility] WHETHER GEN/LOC UNSPEC SITE V711 OBSERVATION 12-09-2011 [facility] FOR [place] SUSPECTED MALIGNANT NEOPLASM 2357 NEOPLASM 12-08-2011 OTILIA PAT UNCERTAIN BEHAVIOR [place] BRONCHUS&[place] [address] COR 12-08-2011 ATTILI ANI ATHEROSLERO UNSPEC TYPE VESSEL [place] APACHE TRIBE OF [place]/TANIKA T 500 COAL 12-08-2011 OTILIA PAT WORKERS PNEUMOCONIO SIS 7969 OTHER 12-08-2011 PURDOM MAT NONSPECIFIC ABNORMAL FINDING 49100 OTHER 11-18-2011 [place] DISEASES OF MEDICAL LUNG NOT IMAGING ASS ELSEWHERE CLASSIFIED 44499 NUCLEAR 10-19-2011 [place] HYACINTH SCLEROSIS 21826 PAIN IN 10-13-2011 [facility] DIONICIO JOINT, SITE UNSPECIFIED V036 NEED PROPH 09-30-2011 RHONA JREICA VACC&INOCUL AT AGAINST PERTUSS ALONE 3319 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 3558 UNSPECIFIED 09-20-2011 [facility] MONONEURITI INC S OF LOWER LIMB 4439 UNSPECIFIED 09-18-2011 [place] [facility]AL [facility] VASCULAR IMAGING ASS DISEASE 19472 ATHEROSLERO 09-08-2011 RHONA JERICA [place] APACHE TRIBE OF [place] ART EXTREMITIES W/ULCERATIO N 8911 OPEN WOUND 09-08-2011 RHONA JERICA OF KNEE LEG AND ANKLE COMPLICATED 27351 CHEST PAIN 09-02-2011 [place] UNSPECIFIED MEDICAL IMAGING ASS 24628 PAINFUL 09-02-2011 [facility] RESPIRATION [facility]OS[facility] INC 8052 CLOS FX 09-02-2011 [facility] DORS MEM HOSP VERTEBRA INC W/O MENTION SP CORD INJURY 99697 OSTEOARTHRO 07-20-2011 EMPI INC S INVLV MX SITES BUT NOT SPEC GEN 7245 UNSPECIFIED 07-20-2011 EMPI INC BACKACHE 65643 ENTHESOPATH 07-10-2011 PAWSAT MAR Y OF UNSPECIFIED SITE 9243 CONTUSION 07-10-2011 WM OF TOE MEM HOSP INC 47768 OBSTRUCTIVE 05-22-2011 ARNOLD KIMMY CHRONIC BRONCHITIS [place] EXACERBATIO N 83816 PAIN IN 05-22-2011 ARNJAG KIMMY JOINT, ANKLE AND FOOT 2382 NEOPLASM OF 09-23-2010 [facility] UNCERTAIN MEDICAL BEHAVIOR OF CLINIC SKIN 4910 SIMPLE 06-03-2010 [facility] CHRONIC MEDICAL BRONCHITIS CLINIC V7612 OTHER 11-21-2009 [facility] [place] SCREENING RADIOLOGY MAMMOGRAM 2720 PURE 11-20-2009 LAB ELO HYPERCHOLES [employer] [employer]EROLEM[employer] 2724 OTHER AND 11-20-2009 [facility] UNSPECIFIED MEDICAL CLINIC HYPERLIPIDE YAAKOV 7242 LUMBAGO 10-30-2009 [facility] MEDICAL CLINIC 00304 OSTEOARTHRO 11-05-2008 PROFESSIONA SIS UNSPEC L REHAB WHETHER ASSOC PSC GEN/LOC LOWER LEG 7197 DIFFICULTY 11-05-2008 PROFESSIONA IN WALKING L REHAB ASSOC PSC 34540 GEN 10-10-2008 [facility] OSTEOARTHRO MEDICAL SIS CLINIC INVOLVING MULTIPLE SITES V4981 ASYMPTOMATI 09-04-2008 [facility] [place] C RADIOLOGY POSTMENOPAU REGINE STATUS 44766 CRAMP OF 08-30-2008 [facility] LIMB [facility]ICAL [facility]INIC 77570 OTHER 09-22-2007 [place], CHRONIC JAYESH A ALLERGIC CONJUNCTIVI TIS 6929 CONTACT 09-19-2007 [facility] DERMATITIS& MEDICAL OTHER CLINIC ECZEMA DUE UNSPEC CAUSE J44.0 CHRONIC OBSTRUCTIVE PULMON DISEASE W ACUTE LOWER RESP INFCT M81.0 AGE-RELATED OSTEOPOROSI S W/O CURRENT PATHOLOGICA L FRACTURE N28.9 DISORDER OF KIDNEY AND URETER, UNSPECIFIED R04.0 EPISTAXIS S22.39XA FRACTURE OF ONE RIB, UNSP SIDE, INIT FOR CLOS FX S62.102A FRACTURE OF UNSP CARPAL BONE, LEFT WRIST, INIT FOR CLOS FX Allergies, Adverse Reactions, Alerts Type Drug Allergy Adverse Reaction to Substance Substance Reaction Severity Naproxen Unknown Unknown Latex Unknown Unknown Medications Na ND Rx Da Fi Fi Am Da Di Ph RX Ph St me C No te ll ll ou ys ag ar # ys at rm s nt no ma ic us Or Da si cy ia de te s n re d FE 00 10 11 30 30 00 RI Ac RR 90 -2 -2 .0 00 TE ti OU 47 3- 4- 00 01 ve S 59 20 20 19 AI JACOBS 16 17 17 02 D LF 0 63 PH AT AR E MA 32 CY 5 MG #3 93 TA 8 BL ET 64 10 11 8. 28 00 RI Ac T 38 -2 -2 00 00 TE ti D2 00 3- 4- 0 01 ve 73 20 20 18 AI 1. 70 17 17 73 D 25 6 85 PH AR MG MA CY (5 0, #3 00 93 0 8 UN IT ) FE 00 09 10 30 30 00 RI Ac RR 90 -0 -0 .0 00 TE ti OU 47 5- 6- 00 01 ve S 59 20 20 19 AI JACOBS 16 17 17 02 D LF 0 63 PH AT AR E MA 32 CY 5 MG #3 93 TA 8 BL ET FE 00 07 08 30 30 00 RI Ac RR 90 -0 -0 .0 00 TE ti OU 47 3- 4- 00 01 ve S 59 20 20 19 AI JACOBS 16 17 17 02 D LF 0 63 PH AT AR E MA 32 CY 5 MG #3 93 TA 8 BL ET FE 00 05 06 30 30 00 RI Ac RO 90 -3 -3 .0 00 TE ti JACOBS 47 0- 0- 00 01 ve L 59 20 20 18 AI 32 18 17 17 15 D 5 2 31 PH MG AR MA TA CY BL ET #3 93 8 FE 00 04 05 30 30 00 RI Ac RO 90 -2 -2 .0 00 TE ti JACOBS 47 6- 6- 00 01 ve L 59 20 20 18 AI 32 18 17 17 15 D 5 2 31 PH MG AR MA TA CY BL ET #3 93 8 64 04 05 8. 28 00 RI Ac T 38 -1 -1 00 00 TE ti D2 00 2- 2- 0 01 ve 73 20 20 15 AI 1. 70 17 17 50 D 25 6 32 PH AR MG MA CY (5 0, #3 00 93 0 8 UN IT ) FE 00 03 04 30 30 00 RI Ac RR 24 -2 -2 .0 00 TE ti OU 50 2- 1- 00 01 ve S 10 20 20 15 AI JACOBS 81 17 17 50 D LF 0 39 PH AR EC MA CY 32 5 #3 MG 93 8 TA BL ET FE 00 02 03 30 30 00 RI Ac RR 24 -1 -1 .0 00 TE ti OU 50 4- 7- 00 01 ve S 10 20 20 15 AI JACOBS 81 17 17 50 D LF 0 39 PH AR EC MA CY 32 5 #3 MG 93 8 TA BL ET 64 01 03 8. 28 00 RI Ac T 38 -3 -0 00 00 TE ti D2 00 1- 3- 0 01 ve 73 20 20 15 AI 1. 70 17 17 50 D 25 6 32 PH AR MG MA CY (5 0, #3 00 93 0 8 UN IT ) FE 57 01 02 30 30 00 RI Ac RR 66 -0 -1 .0 00 TE ti OU 40 6- 0- 00 01 ve S 07 20 20 16 AI JACOBS 00 17 17 56 D LF 1 24 PH AT AR E MA 32 CY 5 MG #3 93 TA 8 BL ET Sa 63 02 0 No li 80 -0 ne 70 4- Lo 10 20 ng Fl 07 13 er us 5 h Ac 10 ti ML ve Sy ri ng e AR 00 09 09 1 12 5 RI 84 PE Ac OM 60 -1 -2 0. TE 99 RE ti ET 31 5- 3- 00 48 Z, ve STOLL 58 20 20 0 AI ZI 55 10 10 D JR NE 8 PH ., -C AR OD MA DO EI CY NE OS 03 CA SY 93 R RU 8 O P # 03 93 AR 00 09 09 1 12 5 RI 84 PE Ac OM 60 -1 -1 0. TE 99 RE ti ET 31 5- 8- 00 48 Z, ve STOLL 58 20 20 0 AI ZI 55 10 10 D JR NE 8 PH ., -C AR OD MA DO EI CY NE OS 03 CA SY 93 R RU 8 O P # 03 93 CH 00 08 08 3 36 6 RI 84 PE Ac ER 60 -2 -2 0. TE 69 RE ti AT 31 4- 7- 00 60 Z, ve US 07 20 20 0 AI SI 55 10 10 D JR N 8 PH ., AC AR MA DO SY CY RU OS P 03 CA 93 R 8 O # 03 93 CH 00 08 08 3 36 6 RI 84 PE Ac ER 60 -0 -2 0. TE 41 RE ti AT 31 2- 1- 00 59 Z, ve US 07 20 20 0 AI SI 55 10 10 D JR N 8 PH ., AC AR MA DO SY CY RU OS P 03 CA 93 R 8 O # 03 93 CH 00 08 08 3 36 6 RI 84 PE Ac ER 60 -0 -1 0. TE 41 RE ti AT 31 2- 5- 00 59 Z, ve US 07 20 20 0 AI SI 55 10 10 D JR N 8 PH ., AC AR MA DO SY CY RU OS P 03 CA 93 R 8 O # 03 93 CH 00 08 08 3 36 6 RI 84 PE Ac ER 60 -0 -0 0. TE 41 RE ti AT 31 2- 9- 00 59 Z, ve US 07 20 20 0 AI SI 55 10 10 D JR N 8 PH ., AC AR MA DO SY CY RU OS P 03 CA 93 R 8 O # 03 93 CH 00 08 08 3 36 6 RI 84 PE Ac ER 60 -0 -0 0. TE 41 RE ti AT 31 2- 3- 00 59 Z, ve US 07 20 20 0 AI SI 55 10 10 D JR N 8 PH ., AC AR MA DO SY CY RU OS P 03 CA 93 R 8 O # 03 93 CH 00 07 07 36 5 RI 84 GR Ac ER 60 -2 -2 0. TE 34 EE ti AT 31 9- 9- 00 78 N ve US 07 20 20 0 AI JE SI 55 10 10 D FF N 8 PH RE AC AR Y MA J SY CY RU P 03 93 8 # 03 93 CH 00 07 07 3 36 6 RI 84 PE Ac ER 60 -0 -2 0. TE 06 RE ti AT 31 6- 3- 00 37 Z, ve US 07 20 20 0 AI SI 55 10 10 D JR N 8 PH ., AC AR MA DO SY CY RU OS P 03 CA 93 R 8 O # 03 93 CH 00 07 07 3 36 6 RI 84 PE Ac ER 60 -0 -1 0. TE 06 RE ti AT 31 6- 7- 00 37 Z, ve US 07 20 20 0 AI SI 55 10 10 D JR N 8 PH ., AC AR MA DO SY CY RU OS P 03 CA 93 R 8 O # 03 93 CH 00 07 07 3 36 6 RI 84 PE Ac ER 60 -0 -1 0. TE 06 RE ti AT 31 6- 2- 00 37 Z, ve US 07 20 20 0 AI SI 55 10 10 D JR N 8 PH ., AC AR MA DO SY CY RU OS P 03 CA 93 R 8 O # 03 93 CH 00 07 07 3 36 6 RI 84 PE Ac ER 60 -0 -0 0. TE 06 RE ti AT 31 6- 6- 00 37 Z, ve US 07 20 20 0 AI SI 55 10 10 D JR N 8 PH ., AC AR MA DO SY CY RU OS P 03 CA 93 R 8 O # 03 93 CH 00 06 06 3 36 6 RI 83 PE Ac ER 60 -1 -2 0. TE 80 RE ti AT 31 4- 9- 00 37 Z, ve US 07 20 20 0 AI SI 55 10 10 D JR N 8 PH ., AC AR MA DO SY CY RU OS P 03 CA 93 R 8 O # 03 93 CH 00 06 06 3 36 6 RI 83 PE Ac ER 60 -1 -2 0. TE 80 RE ti AT 31 4- 4- 00 37 Z, ve US 07 20 20 0 AI SI 55 10 10 D JR N 8 PH ., AC AR MA DO SY CY RU OS P 03 CA 93 R 8 O # 03 93 CH 00 06 06 3 36 6 RI 83 PE Ac ER 60 -1 -1 0. TE 80 RE ti AT 31 4 9- 00 37 Z, ve US 07 20 20 0 AI SI 55 10 10 D JR N 8 PH ., AC AR MA DO SY CY RU OS P 03 CA 93 R 8 O # 03 93 CH 00 06 06 3 36 6 RI 83 PE Ac ER 60 -1 -1 0. TE 80 RE ti AT 31 4- 5- 00 37 Z, ve US 07 20 20 0 AI SI 55 10 10 D JR N 8 PH ., AC AR MA DO SY CY RU OS P 03 CA 93 R 8 O # 03 93 CH 00 05 06 3 36 6 RI 83 PE Ac ER 60 -2 -0 0. TE 51 RE ti AT 31 4 9 00 88 Z, ve US 07 20 20 0 AI SI 55 10 10 D JR N 8 PH ., AC AR MA DO SY CY RU OS P 03 CA 93 R 8 O # 03 93 CH 00 05 06 3 36 6 RI 83 PE Ac ER 60 -2 -0 0. TE 51 RE ti AT 31 4- 4- 00 88 Z, ve US 07 20 20 0 AI SI 55 10 10 D JR N 8 PH ., AC AR MA DO SY CY RU OS P 03 CA 93 R 8 O # 03 93 CH 00 05 05 3 36 6 RI 83 PE Ac ER 60 -2 -3 0. TE 51 RE ti AT 31 4- 0- 00 88 Z, ve US 07 20 20 0 AI SI 55 10 10 D JR N 8 PH ., AC AR MA DO SY CY RU OS P 03 CA 93 R 8 O # 03 93 CH 00 05 05 3 36 6 RI 83 PE Ac ER 60 -2 -2 0. TE 51 RE ti AT 31 4- 5- 00 88 Z, ve US 07 20 20 0 AI SI 55 10 10 D JR N 8 PH ., AC AR MA DO SY CY RU OS P 03 CA 93 R 8 O # 03 93 CH 00 05 05 3 36 6 RI 83 PE Ac ER 60 -0 -2 0. TE 24 RE ti AT 31 4- 0- 00 62 Z, ve US 07 20 20 0 AI SI 55 10 10 D JR N 8 PH ., AC AR MA DO SY CY RU OS P 03 CA 93 R 8 O # 03 93 CH 00 05 05 3 36 6 RI 83 PE Ac ER 60 -0 -1 0. TE 24 RE ti AT 31 4- 5- 00 62 Z, ve US 07 20 20 0 AI SI 55 10 10 D JR N 8 PH ., AC AR MA DO SY CY RU OS P 03 CA 93 R 8 O # 03 93 CH 00 05 05 3 36 6 RI 83 PE Ac ER 60 -0 -1 0. TE 24 RE ti AT 31 4- 0- 00 62 Z, ve US 07 20 20 0 AI SI 55 10 10 D JR N 8 PH ., AC AR MA DO SY CY RU OS P 03 CA 93 R 8 O # 03 93 CH 00 05 05 3 36 6 RI 83 PE Ac ER 60 -0 -0 0. TE 24 RE ti AT 31 4- 4- 00 62 Z, ve US 07 20 20 0 AI SI 55 10 10 D JR N 8 PH ., AC AR MA DO SY CY RU OS P 03 CA 93 R 8 O # 03 93 CH 00 04 04 3 36 6 RI 83 PE Ac ER 60 -1 -2 0. TE 12 RE ti AT 31 2- 9- 00 02 Z, ve US 07 20 20 0 AI SI 55 10 10 D JR N 8 PH ., AC AR MA DO SY CY RU OS P 03 CA 93 R 8 O # 03 93 CH 00 04 04 3 36 6 RI 83 PE Ac ER 60 -1 -2 0. TE 12 RE ti AT 31 2- 3- 00 02 Z, ve US 07 20 20 0 AI SI 55 10 10 D JR N 8 PH ., AC AR MA DO SY CY RU OS P 03 CA 93 R 8 O # 03 93 CH 00 04 04 3 36 6 RI 82 PE Ac ER 60 -1 -1 0. TE 97 RE ti AT 31 2- 8- 00 57 Z, ve US 07 20 20 0 AI SI 55 10 10 D JR N 8 PH ., AC AR MA DO SY CY RU OS P 03 CA 93 R 8 O # 03 93 CH 00 04 04 3 36 6 RI 82 PE Ac ER 60 -1 -1 0. TE 97 RE ti AT 31 2- 3- 00 57 Z, ve US 07 20 20 0 AI SI 55 10 10 D JR N 8 PH ., AC AR MA DO SY CY RU OS P 03 CA 93 R 8 O # 03 93 CH 00 10 11 01 36 6 RI 80 PE Ac ER 60 -1 -0 0. TE 44 RE ti AT 31 6- 5- 00 06 Z, ve US 07 20 20 0 AI SI 55 09 09 D JR N 8 PH ., AC AR M DO SY #3 RU 93 OS P 8 CA R O CH 00 10 10 00 36 6 RI 80 PE Ac ER 60 -1 -2 0. TE 44 RE ti AT 31 6- 2- 00 06 Z, ve US 07 20 20 0 AI SI 55 09 09 D JR N 8 PH ., AC AR M DO SY #3 RU 93 OS P 8 CA R O CH 00 09 10 02 36 9 RI 79 PE Ac ER 60 -1 -0 0. TE 98 RE ti AT 31 4- 8- 00 26 Z, ve US 07 20 20 0 AI SI 55 09 09 D JR N 8 PH ., AC AR M DO SY #3 RU 93 OS P 8 CA R O CH 00 08 09 01 36 9 RI 79 PE Ac ER 60 -2 -2 0. TE 71 RE ti AT 31 5- 4- 00 36 Z, ve US 07 20 20 0 AI SI 55 09 09 D JR N 8 PH ., AC AR M DO SY #3 RU 93 OS P 8 CA R O CH 00 08 09 00 36 9 RI 79 PE Ac ER 60 -2 -1 0. TE 71 RE ti AT 31 5- 0- 00 36 Z, ve US 07 20 20 0 AI SI 55 09 09 D JR N 8 PH ., AC AR M DO SY #3 RU 93 OS P 8 CA R O CH 00 07 08 03 36 9 RI 79 PE Ac ER 60 -2 -2 0. TE 26 RE ti AT 31 0- 7- 00 04 Z, ve US 07 20 20 0 AI SI 55 09 09 D JR N 8 PH ., AC AR M DO SY #3 RU 93 OS P 8 CA R O CH 00 07 08 02 36 9 RI 79 PE Ac ER 60 -2 -1 0. TE 26 RE ti AT 31 0- 3- 00 04 Z, ve US 07 20 20 0 AI SI 55 09 09 D JR N 8 PH ., AC AR M DO SY #3 RU 93 OS P 8 CA R O CH 00 07 07 00 36 6 RI 79 PE Ac ER 60 -1 -3 0. TE 18 RE ti AT 31 4- 0- 00 14 Z, ve US 07 20 20 0 AI SI 55 09 09 D JR N 8 PH ., AC AR M DO SY #3 RU 93 OS P 8 CA R O CH 00 06 07 02 36 6 RI 78 PE Ac ER 60 -1 -1 0. TE 95 RE ti AT 31 6- 6- 00 23 Z, ve US 07 20 20 0 AI SI 55 09 09 D JR N 8 PH ., AC AR M DO SY #3 RU 93 OS P 8 CA R O CH 00 06 07 00 36 9 RI 78 PE Ac ER 60 -1 -0 0. TE 84 RE ti AT 31 6- 2- 00 85 Z, ve US 07 20 20 0 AI SI 55 09 09 D JR N 8 PH ., AC AR M DO SY #3 RU 93 OS P 8 CA R O CH 00 05 06 01 36 9 RI 78 PE Ac ER 60 -1 -1 0. TE 63 RE ti AT 31 2- 8- 00 29 Z, ve US 07 20 20 0 AI SI 55 09 09 D JR N 8 PH ., AC AR M DO SY #3 RU 93 OS P 8 CA R O CH 00 05 06 01 36 9 RI 78 PE Ac ER 60 -1 -0 0. TE 38 RE ti AT 31 2- 4- 00 18 Z, ve US 07 20 20 0 AI SI 55 09 09 D JR N 8 PH ., AC AR M DO SY #3 RU 93 OS P 8 CA R O CH 00 05 05 00 36 9 RI 78 PE Ac ER 60 -1 -2 0. TE 38 RE ti AT 31 2- 1- 00 18 Z, ve US 07 20 20 0 AI SI 55 09 09 D JR N 8 PH ., AC AR M DO SY #3 RU 93 OS P 8 CA R O CH 00 12 01 00 36 9 RI 76 PE Ac ER 60 -1 -3 0. TE 72 RE ti AT 31 8- 0- 00 88 Z, ve US 07 20 20 0 AI SI 55 08 09 D JR N 8 PH ., AC AR M DO SY #3 RU 93 OS P 8 CA R O CH 00 12 01 02 36 9 RI 76 PE Ac ER 60 -1 -1 0. TE 31 RE ti AT 31 8- 5- 00 57 Z, ve US 07 20 20 0 AI SI 55 08 09 D JR N 8 PH ., AC AR M DO SY #3 RU 93 OS P 8 CA R O CH 00 12 01 01 36 9 RI 76 PE Ac ER 60 -1 -0 0. TE 31 RE ti AT 31 8- 1- 00 57 Z, ve US 07 20 20 0 AI SI 55 08 09 D JR N 8 PH ., AC AR M DO SY #3 RU 93 OS P 8 CA R O CH 00 11 12 01 36 12 RI 75 PE Ac ER 60 -2 -1 0. TE 92 RE ti AT 31 1- 8- 00 89 Z, ve US 07 20 20 0 AI SI 55 08 08 D JR N 8 PH ., AC AR M DO SY #3 RU 93 OS P 8 CA R O CH 00 11 12 00 36 12 RI 75 PE Ac ER 60 -2 -0 0. TE 92 RE ti AT 31 1- 4- 00 89 Z, ve US 07 20 20 0 AI SI 55 08 08 D JR N 8 PH ., AC AR M DO SY #3 RU 93 OS P 8 CA R O CH 00 10 11 03 36 12 RI 75 PE Ac ER 60 -0 -2 0. TE 34 RE ti AT 31 9- 0- 00 25 Z, ve US 07 20 20 0 AI SI 55 08 08 D JR N 8 PH ., AC AR M DO SY #3 RU 93 OS P 8 CA R O CH 00 10 11 02 36 12 RI 75 PE Ac ER 60 -0 -0 0. TE 34 RE ti AT 31 9- 7- 00 25 Z, ve US 07 20 20 0 AI SI 55 08 08 D JR N 8 PH ., AC AR M DO SY #3 RU 93 OS P 8 CA R O CH 00 10 10 00 36 12 RI 75 PE Ac ER 60 -0 -2 0. TE 34 RE ti AT 31 9- 3- 00 25 Z, ve US 07 20 20 0 AI SI 55 08 08 D JR N 8 PH ., AC AR M DO SY #3 RU 93 OS P 8 CA R O CH 00 08 10 04 36 10 RI 74 PE Ac ER 60 -1 -0 0. TE 53 RE ti AT 31 1- 9- 00 17 Z, ve US 07 20 20 0 AI SI 55 08 08 D JR N 8 PH ., AC AR M DO SY #3 RU 93 OS P 8 CA R O CH 00 08 09 03 36 10 RI 74 PE Ac ER 60 -1 -2 0. TE 53 RE ti AT 31 1- 6- 00 17 Z, ve US 07 20 20 0 AI SI 55 08 08 D JR N 8 PH ., AC AR M DO SY #3 RU 93 OS P 8 CA R O CH 00 08 09 01 36 12 RI 74 PE Ac ER 60 -1 -1 0. TE 53 RE ti AT 31 1- 1- 00 17 Z, ve US 07 20 20 0 AI SI 55 08 08 D JR N 8 PH ., AC AR M DO SY #3 RU 93 OS P 8 CA R O CH 00 08 08 00 36 12 RI 74 PE Ac ER 60 -1 -2 0. TE 53 RE ti AT 31 1- 8- 00 17 Z, ve US 07 20 20 0 AI SI 55 08 08 D JR N 8 PH ., AC AR M DO SY #3 RU 93 OS P 8 CA R O CH 00 07 08 01 36 9 RI 74 PE Ac ER 60 -2 -1 0. TE 33 RE ti AT 31 9- 4- 00 54 Z, ve US 07 20 20 0 AI SI 55 08 08 D JR N 8 PH ., AC AR M DO SY #3 RU 93 OS P 8 CA R O CH 00 07 08 01 36 9 RI 74 PE Ac ER 60 -1 -0 0. TE 08 RE ti AT 31 0- 1- 00 84 Z, ve US 07 20 20 0 AI SI 55 08 08 D JR N 8 PH ., AC AR M DO SY #3 RU 93 OS P 8 CA R O CH 00 07 07 00 36 9 RI 74 PE Ac ER 60 -1 -1 0. TE 08 RE ti AT 31 0- 7- 00 84 Z, ve US 07 20 20 0 AI SI 55 08 08 D JR N 8 PH ., AC AR M DO SY #3 RU 93 OS P 8 CA R O 10 07 07 00 60 30 RI 74 PE Ac 12 -0 -1 .0 TE 00 RE ti 20 3- 7- 00 59 Z, ve 70 20 20 AI 42 08 08 D JR 0 PH ., AR M DO #3 93 OS 8 CA R O CH 00 06 07 00 24 6 WA 44 PE Ac ER 60 -2 -0 0. L- 69 RE ti AT 31 3- 3- 00 MA 04 Z, ve US 07 20 20 0 RT 9 SI 55 08 08 JR N 8 PH ., AC AR MA DO SY CY RU OS P #5 CA 91 R O 53 06 06 00 14 14 RI 73 NO Ac 01 -0 -1 0. TE 56 BL ti 40 2- 2- 00 67 E ve 54 20 20 0 AI OK 86 08 08 D CH 7 PH AE AR L M L #3 93 8 66 05 06 00 36 14 RI 73 No Ac 99 -0 -0 0. TE 38 t ti 20 5- 5- 00 42 Av ve 25 20 20 0 AI ai 01 08 08 D la 6 PH bl AR e M #3 93 8 60 04 05 01 14 4 [place] 44 No Ac 25 -0 -0 5. L- 67 t ti 80 9- 8- 00 MA 45 Av ve 71 20 20 0 RT 7 ai 41 08 08 la 6 PH bl AR e MA CY #5 91 66 04 05 00 56 28 [place] 44 No Ac 99 -2 -0 0. L- 66 t ti 20 3- 8- 00 MA 87 Av ve 25 20 20 0 RT 5 ai 01 08 08 la 6 PH bl M e 10 -0 49 3 60 04 04 00 36 9 WA 44 No Ac 25 -0 -2 0. L- 67 t ti 80 9- 4- 00 MA 45 Av ve 71 20 20 0 RT 7 ai 41 08 08 la 6 PH bl AR e MA CY #5 91 60 03 04 03 36 9 [place] 44 No Ac 25 -1 -2 0. L- 66 t ti 80 0- 4- 00 MA 81 Av ve 71 20 20 0 RT 0 ai 41 08 08 la 6 PH bl AR e MA CY #5 91 60 03 04 01 36 9 [place] 44 No Ac 25 -1 -1 0. L- 66 t ti 80 0- 7- 00 MA 81 Av ve 71 20 20 0 RT 0 ai 41 08 08 la 6 PH bl AR e MA CY #5 91 60 03 04 00 36 9 [place] 44 No Ac 25 -1 -1 0. L- 66 t ti 80 0- 7- 00 MA 81 Av ve 71 20 20 0 RT 0 ai 41 08 08 la 6 PH bl AR e MA CY #5 91 60 03 04 02 36 9 [place] 44 No Ac 25 -1 -1 0. L- 66 t ti 80 0- 0- 00 MA 81 Av ve 71 20 20 0 RT 0 ai 41 08 08 la 6 PH bl AR e MA CY #5 91 60 01 04 03 36 9 [place] 44 No Ac 25 -3 -0 0. L- 65 t ti 80 1- 7- 00 MA 92 Av ve 71 20 20 0 RT 2 ai 41 08 08 la 6 PH bl AR e MA CY #5 91 60 01 04 02 36 9 [place] 44 No Ac 25 -3 -0 0. L- 65 t ti 80 1- 7- 00 MA 92 Av ve 71 20 20 0 RT 2 ai 41 08 08 la 6 PH bl AR e MA CY #5 91 60 01 03 00 36 9 [place] 44 No Ac 25 -3 -2 0. L- 65 t ti 80 1- 6- 00 MA 92 Av ve 71 20 20 0 RT 2 ai 41 08 08 la 6 PH bl AR e MA CY #5 91 60 12 03 03 36 9 [place] 44 No Ac 25 -2 -2 0. L- 65 t ti 80 8- 6- 00 MA 17 Av ve 71 20 20 0 RT 8 ai 41 07 08 la 6 PH bl AR e MA CY #5 91 60 01 03 01 36 9 [place] 44 No Ac 25 -3 -2 0. L- 65 t ti 80 1- 6- 00 MA 92 Av ve 71 20 20 0 RT 2 ai 41 08 08 la 6 PH bl AR e MA CY #5 91 60 12 03 02 36 9 [place] 44 No Ac 25 -2 -2 0. L- 65 t ti 80 8- 5- 00 MA 17 Av ve 71 20 20 0 RT 8 ai 41 07 08 la 6 PH bl AR e MA CY #5 91 60 12 03 01 36 9 [place] 44 No Ac 25 -2 -2 0. L- 65 t ti 80 8- 4- 00 MA 17 Av ve 71 20 20 0 RT 8 ai 41 07 08 la 6 PH bl AR e MA CY #5 91 Vital Signs 03-14-2012 12:39 Name Value Interpretat Reference Comment ion Range Body 98.1 [degF] Temperature BP 65 mm[Hg] Diastolic BP Systolic 110 mm[Hg] Heart 94 /min Rate/Pulse O2% 95 % Respiratory 16 /min Rate 03-14-2012 11:45 Name Value Interpretat Reference Comment ion Range BP 57 mm[Hg] Diastolic BP Systolic 110 mm[Hg] Heart 78 /min Rate/Pulse O2% 98 % Respiratory 20 /min Rate Results Labs Lab Lab Date Result Refere Interp Status Commen Order Detail nces retati t Range on Comp Metab 1997 Pnl SerPl (11-02-2016 12:04) Comment: [employer] Guidelines Comment: Comment: Stage Description GFR Comment: 1 Normal or High 90+ Comment: 2 Mild decrease 60-89 Comment: 3 Moderate decrease 30-59 Comment: 4 Severe decrease 15-29 Comment: 5 Kidney failure <15 Potassi 4.5 3.5-5.5 complet um 017 mmol/L ed Bld-sCn 12:04 c Sodium 142 132-146 complet Bld-sCn 017 mmol/L ed c 12:04 Creat 1.10 0.60-1. complet Bld-mCn 017 mg/dL 30 ed c 12:04 BUN 16 9-23 complet Bld-mCn 017 mg/dL ed c 12:04 Anion 5.0 3.0-11. complet Gap3 017 mmol/L 0 ed SerPl-s 12:04 Cnc BUN/Cre 14.5 7.0-25. complet at 017 0 ed SerPl 12:04 Albumin 1.7 1.5-2.5 complet /Glob 017 g/dL ed SerPl 12:04 Globuli 2.3 complet n Ur 017 gm/dL ed Elph-mC 12:04 nc GFR/BSA 49 >60 complet .pred 017 mL/min/ ed SerPl 12:04 1.73 MDRD-Ar VRat Bilirub 0.2 0.3-1.2 complet 017 mg/dL ed SerPl-m 12:04 Cnc ALP 138 U/L 25-100 complet SerPl-c 017 ed Cnc 12:04 AST 16 U/L 0-33 complet SerPl-c 017 ed Cnc 12:04 ALT 10 U/L 7-40 complet SerPl w 017 ed 12:04 P-5'-P- cCnc Albumin 3.90 3.20-4. complet 017 g/dL 80 ed SerPl-m 12:04 Cnc Prot 6.2 5.7-8.2 complet SerPl-m 017 g/dL ed Cnc 12:04 Calcium 10.3 8.7-10. complet 017 mg/dL 4 ed XXX-sCn 12:04 c CO2 31.0 20.0-31 complet SerPl-s 017 mmol/L .0 ed Cnc 12:04 Chlorid 106 99-109 complet e 017 mmol/L ed SerPl-s 12:04 Cnc Glucose 92 70-100 complet 017 mg/dL ed Bld-mCn 12:04 c Phosphate SerPl-mCnc (11-02-2016 12:04) Phospha 3.2 2.4-5.1 complet te 017 mg/dL ed SerPl-m 12:04 Cnc Mg Ionized SerPl-mCnc (11-02-2016 12:04) Magnesi 1.7 1.3-2.7 complet um 017 mg/dL ed SerPl-m 12:04 Cnc CBC W Diff pnl,unspecified Bld (11-02-2016 12:04) Neutrop 8.70 1.50-8. complet hils # 017 10*3/mm 30 ed Bld 12:04 3 Auto Monocyt 4.9 % 0.0-12. complet es/leuk 017 0 ed NFr 12:04 Bld Auto Lymphoc 14.2 % 24.0-44 complet ytes/le 017 .0 ed uk NFr 12:04 Bld Auto Neutrop 80.9 % 41.0-71 complet hils/le 017 .0 ed uk NFr 12:04 Bld Auto Platele 477 150-450 complet t # Bld 017 10*3/mm ed Auto 12:04 3 PMV Bld 7.4 fL 6.0-12. complet Auto 017 0 ed 12:04 MCHC 31.1 32.0-36 complet RBC 017 g/dL .0 ed Auto-mC 12:04 nc MCH RBC 29.7 pg 27.0-31 complet Qn 017 .0 ed Auto 12:04 MCV RBC 95.7 fL 80.0-99 complet Auto 017 .0 ed 12:04 RDW RBC 15.5 % 11.3-14 complet 017 .5 ed Auto-Rt 12:04 o Hct VFr 26.8 % 34.5-44 complet Bld 017 .0 ed Auto 12:04 Hgb 8.3 11.5-15 complet Bld-mCn 017 g/dL .5 ed c 12:04 RBC # 11-02- 2.80 3.89-5. complet Bld 017 10*6/mm 14 ed Auto 12:04 3 WBC 10.70 3.50-10 complet nRBC 017 10*3/mm .80 ed cor # 12:04 3 Bld Monocyt 0.50 0.00-1. complet es # 017 10*3/mm 00 ed Bld 12:04 3 Auto Lymphoc 1.50 0.60-4. complet ytes # 017 10*3/mm 80 ed Bld 12:04 3 Auto Comp Metab 1998 Pnl SerPl (10-27-2016 10:33) Comment: [employer] Guidelines Comment: Comment: Stage Description GFR Comment: 1 Normal or High 90+ Comment: 2 Mild decrease 60-89 Comment: 3 Moderate decrease 30-59 Comment: 4 Severe decrease 15-29 Comment: 5 Kidney failure <15 Albumin 1.7 1.5-2.5 complet /Glob 017 g/dL ed SerPl 10:33 Globuli 2.4 complet n Ur 017 gm/dL ed Elph-mC 10:33 nc GFR/BSA 44 >60 complet .pred 017 mL/min/ ed SerPl 10:33 1.73 MDRD-Ar VRat Bilirub 0.2 0.3-1.2 complet 017 mg/dL ed SerPl-m 10:33 Cnc ALP 153 U/L 25-100 complet SerPl-c 017 ed Cnc 10:33 AST 19 U/L 0-33 complet SerPl-c 017 ed Cnc 10:33 ALT 12 U/L 7-40 complet SerPl w 017 ed 10:33 P-5'-P- cCnc Albumin 4.10 3.20-4. complet 017 g/dL 80 ed SerPl-m 10:33 Cnc Prot 6.5 5.7-8.2 complet SerPl-m 017 g/dL ed Cnc 10:33 Calcium 10.7 8.7-10. complet 017 mg/dL 4 ed XXX-sCn 10:33 c CO2 29.0 20.0-31 complet SerPl-s 017 mmol/L .0 ed Cnc 10:33 Chlorid 103 99-109 complet e 017 mmol/L ed SerPl-s 10:33 Cnc Potassi 4.2 3.5-5.5 complet um 017 mmol/L ed Bld-sCn 10:33 c Sodium 140 132-146 complet Bld-sCn 017 mmol/L ed c 10:33 Creat 1.20 0.60-1. complet Bld-mCn 017 mg/dL 30 ed c 10:33 BUN 16 9-23 complet Bld-mCn 017 mg/dL ed c 10:33 Glucose 88 70-100 complet 017 mg/dL ed Bld-mCn 10:33 c Anion 8.0 3.0-11. complet Gap3 017 mmol/L 0 ed SerPl-s 10:33 Cnc BUN/Cre 13.3 7.0-25. complet at 017 0 ed SerPl 10:33 CBC W Diff pnl,unspecified Bld (10-27-2016 10:33) Imm 0.06 0.00-0. complet Granulo 017 10*3/mm 03 ed cytes # 10:33 3 Bld Basophi 09-19-2 0.05 0.00-0. complet ls # 017 10*3/mm 20 ed Bld 10:33 3 Auto Lymphoc -19-2 17.8 % 24.0-44 complet ytes/le 017 .0 ed uk NFr 10:33 Bld Auto Eosinop -19-2 0.16 0.00-0. complet hil # 017 10*3/mm 30 ed Bld 10:33 3 Auto Monocyt 19-2 0.96 0.00-1. complet es # 017 10*3/mm 00 ed Bld 10:33 3 Auto Lymphoc 19-2 1.65 0.60-4. complet ytes # 017 10*3/mm 80 ed Bld 10:33 3 Auto Neutrop 19-2 6.37 1.50-8. complet hils # 017 10*3/mm 30 ed Bld 10:33 3 Auto Imm 19-2 0.6 % 0.0-0.6 complet Granulo 017 ed cytes/l 10:33 euk NFr Bld Basophi 10-27-2 0.5 % 0.0-1.0 complet ls/leuk 017 ed NFr 10:33 Bld Auto Eosinop 19-2 1.7 % 0.0-3.0 complet hil/siobhan 017 ed k NFr 10:33 Bld Auto Monocyt 10-27-2 10.4 % 0.0-12. complet es/leuk 017 0 ed NFr 10:33 Bld Auto Neutrop 10-27-2 69.0 % 41.0-71 complet hils/le 017 .0 ed uk NFr 10:33 Bld Auto Platele 10-27-2 477 150-450 complet t # Bld 017 10*3/mm ed Auto 10:33 3 PMV Bld 10-27-2 9.2 fL 6.0-12. complet Auto 017 0 ed 10:33 RDW RBC 10-27-2 51.8 fl 37.0-54 complet Auto 017 .0 ed 10:33 RDW RBC 10-27-2 14.3 % 11.3-14 complet 017 .5 ed Auto-Rt 10:33 o MCHC 10-27-2 30.4 32.0-36 complet RBC 017 g/dL .0 ed Auto-mC 10:33 nc MCH RBC 30.0 pg 27.0-31 complet Qn 017 .0 ed Auto 10:33 MCV RBC 98.6 fL 80.0-99 complet Auto 017 .0 ed 10:33 Hct VFr 28.3 % 34.5-44 complet Bld 017 .0 ed Auto 10:33 Hgb 8.6 11.5-15 complet Bld-mCn 017 g/dL .5 ed c 10:33 RBC # 10-27-2 2.87 3.89-5. complet Bld 017 10*6/mm 14 ed Auto 10:33 3 WBC 9.25 3.50-10 complet nRBC 017 10*3/mm .80 ed cor # 10:33 3 Bld Creat Bld-mCnc (10-27-2016 10:21) Creat 1.30 0.60-1. complet BldA-mC 017 mg/dL 30 ed nc 10:21 Comment: Serial Number: [id number]: [id number] Comp Metab 1998 Pnl SerPl (04-28-2016 10:59) Comment: [employer] Guidelines Comment: Comment: Stage Description GFR Comment: 1 Normal or High 90+ Comment: 2 Mild decrease 60-89 Comment: 3 Moderate decrease 30-59 Comment: 4 Severe decrease 15-29 Comment: 5 Kidney failure <15 Anion 13.0 3.0-11. complet Gap3 017 mmol/L 0 ed SerPl-s 10:59 Cnc BUN/Cre 10.7 7.0-25. complet at 017 0 ed SerPl 10:59 Albumin 1.7 1.5-2.5 complet /Glob 017 g/dL ed SerPl 10:59 Globuli 2.6 complet n Ur 017 gm/dL ed Elph-mC 10:59 nc GFR/BSA 37 >60 complet .pred 017 mL/min/ ed SerPl 10:59 1.73 MDRD-Ar VRat Bilirub 0.2 0.3-1.2 complet 017 mg/dL ed SerPl-m 10:59 Cnc ALP 03-21-2 99 U/L 25-100 complet SerPl-c 017 ed Cnc 10:59 AST 04-28-2 24 U/L 0-33 complet SerPl-c 017 ed Cnc 10:59 ALT 04-28-2 13 U/L 7-40 complet SerPl w 017 ed 10:59 P-5'-P- cCnc Albumin 4.30 3.20-4. complet 017 g/dL 80 ed SerPl-m 10:59 Cnc Prot 04-28-2 6.9 5.7-8.2 complet SerPl-m 017 g/dL ed Cnc 10:59 Calcium 2 11.4 8.7-10. complet 017 mg/dL 4 ed XXX-sCn 10:59 c CO2 04-28-2 26.0 20.0-31 complet SerPl-s 017 mmol/L .0 ed Cnc 10:59 Chlorid 2 100 99-109 complet e 017 mmol/L ed SerPl-s 10:59 Cnc Potassi 3.6 3.5-5.5 complet um 017 mmol/L ed Bld-sCn 10:59 c Sodium 139 132-146 complet Bld-sCn 017 mmol/L ed c 10:59 Creat 04-28-2 1.40 0.60-1. complet Bld-mCn 017 mg/dL 30 ed c 10:59 BUN 04-28-2 15 9-23 complet Bld-mCn 017 mg/dL ed c 10:59 Glucose 04-28-2 109 70-100 complet 017 mg/dL ed Bld-mCn 10:59 c CBC W Diff pnl,unspecified Bld (04-28-2016 10:59) Monocyt 04-28-2 0.50 0.00-1. complet es # 017 10*3/mm 00 ed Bld 10:59 3 Auto Lymphoc 04-28-2 1.60 0.60-4. complet ytes # 017 10*3/mm 80 ed Bld 10:59 3 Auto Neutrop 21-2 9.80 1.50-8. complet hils # 017 10*3/mm 30 ed Bld 10:59 3 Auto Monocyt 04-28-2 4.4 % 0.0-12. complet es NFr 017 0 ed Bld 10:59 Auto Lymphoc -21-2 13.7 % 24.0-44 complet ytes 017 .0 ed NFr Bld 10:59 Auto Neutrop -21-2 81.9 % 41.0-71 complet hils 017 .0 ed NFr Bld 10:59 Auto Platele --2 456 150-450 complet t # Bld 017 10*3/mm ed Auto 10:59 3 PMV Bld 21-2 7.2 fL 6.0-12. complet Auto 017 0 ed 10:59 MCHC -21-2 31.8 32.0-36 complet RBC 017 g/dL .0 ed Auto-mC 10:59 nc MCH RBC -21-2 30.2 pg 27.0-31 complet Qn 017 .0 ed Auto 10:59 MCV RBC -21-2 94.9 fL 80.0-99 complet Auto 017 .0 ed 10:59 RDW RBC -21-2 14.6 % 11.3-14 complet 017 .5 ed Auto-Rt 10:59 o Hct VFr 04-28-2 27.2 % 34.5-44 complet Bld 017 .0 ed Auto 10:59 Hgb -21-2 8.6 11.5-15 complet Bld-mCn 017 g/dL .5 ed c 10:59 RBC # 03-21-2 2.86 3.89-5. complet Bld 017 10*6/mm 14 ed Auto 10:59 3 WBC -21-2 12.00 3.50-10 complet nRBC 017 10*3/mm .80 ed cor # 10:59 3 Bld Creat Bld-mCnc (04-20-2016 11:47) Creat 04-20-2 1.50 0.60-1. complet BldA-mC 017 mg/dL 30 ed nc 11:47 Comment: Serial Number: [id number] Sales Enablement Analyst: [id number] Creat Bld-mCnc (12-16-2015 11:23) Creat 1.10 0.60-1. complet BldA-mC 016 mg/dL 30 ed nc 11:23 Comment: Serial Number: [id number] Sales Enablement Analyst: [id number] COMPREHENSIVE METABOLIC PANEL (03-14-2012 11:00) Glucose 103 74-106 complet 013 mg/dL ed Bld-mCn 11:00 c BUN 26 7-18 complet Bld-mCn 013 mg/dL ed c 11:00 Creat 1.1 0.6-1.0 complet SerPl-m 013 mg/dL ed Cnc 11:00 ESTIMAT 49 50-200 complet ED 013 ML/MIN ed CREATIN 11:00 INE CLEARAN CE GFR 49 59- complet (ESTIMA 013 ML/MIN ed VIPUL) 11:00 Sodium 136 136-145 complet SerPl-s 013 mmoL/L ed Cnc 11:00 Potassi 3.8 3.5-5.1 complet um 013 mmoL/L ed SerPl-s 11:00 Cnc Chlorid 103 98-107 complet e 013 mmoL/L ed SerPl-s 11:00 Cnc CO2 22 21.0-32 complet SerPl-s 013 mmoL/L .0 ed Cnc 11:00 Calcium 8.9 8.5-10. complet 013 mg/dL 1 ed SerPl-m 11:00 Cnc Prot 6.6 6.4-8.2 complet SerPl-m 013 gm/dL ed Cnc 11:00 Albumin 3.1 3.4-5.0 complet 013 gm/dL ed SerPl-m 11:00 Cnc Globuli 3.5 1.3-3.2 complet n 013 gm/dL ed Ser-mCn 11:00 c Albumin 0.9 UNK 1.1-1.8 complet /Glob 013 ed SerPl-m 11:00 Rto Bilirub 1.3 0.2-1.0 complet 013 mg/dL ed SerPl-m 11:00 Cnc AST 17 U/L 15-37 complet SerPl-c 013 ed Cnc 11:00 ALT 25 U/L 30-65 complet SerPl-c 013 ed Cnc 11:00 ALP 146 U/L 50-136 complet SerPl-c 013 ed Cnc 11:00 CBC with AUTO DIFF (03-14-2012 11:00) WBC # 02-04-2 7.5 4.8-10. complet Bld 013 K/MM3 8 ed Auto 11:00 RBC # 02-04-2 3.43 4.2-5.4 complet Bld 013 M/mm3 ed Auto 11:00 Hgb 02-04-2 10.1 12.2-16 complet Bld-mCn 013 g/dL .2 ed c 11:00 Hct Fr --2 30.5 % 37.0-47 complet Bld 013 .0 ed 11:00 MCV RBC -04-2 88.9 fl 82.2-97 complet 013 .8 ed 11:00 MCH RBC 04-2 29.5 pg 27-31.2 complet Qn 013 ed Auto 11:00 MEAN 03-14-2 33.2 31.8-35 complet CORPUSC 013 g/dl .4 ed ULAR 11:00 HGB CONC RDW RBC -04-2 18.2 % 11.5-17 complet Auto 013 .5 ed 11:00 Platele -04-2 426 142-424 complet t Bld 013 K/mm3 ed Ql 11:00 Manual MEAN 03-14-2 7.5 fl 7.4-10. complet PLATELE 013 4 ed T 11:00 VOLUME Granulo -04-2 77.8 % 37.0-80 complet cytes 013 .0 ed Fr Bld 11:00 Auto LYMPH % -04-2 19.3 % 10-50.0 complet 013 ed 11:00 Monocyt 02-04-2 2.3 % 1.7-9.3 complet es Fr 013 ed Bld 11:00 Auto Eosinop 02-04-2 0.3 % 0.1-12. complet hil Fr 013 0 ed Bld 11:00 Auto Basophi 02-04-2 0.3 % 0.1-2.0 complet ls Fr 013 ed Bld 11:00 Auto Granulo 02-04-2 5.9 1.8-7.8 complet cytes # 013 K/mm3 ed Bld 11:00 Auto Lymphoc 02-04-2 1.5 0.7-4.5 complet ytes Fr 013 K/mm3 ed Bld 11:00 Auto Monocyt 02-04-2 0.2 0.1-1.0 complet es # 013 K/mm3 ed Bld 11:00 Auto Eosinop 03-14- 0.0 0.0-0.4 complet hil # 013 K/mm3 ed Bld 11:00 Auto Basophi 03-14- 0.0 0-0.2 complet ls # 013 K/MM3 ed Bld 11:00 Auto Procedures Procedure DOS Code Location Performer Comment [facility] [address] [facility] 2 Y Y PLEURAL [facility] BIOPSY [facility] [address] [facility] LUNG 2 Y Y [facility]OPSY [facility] SIMPLE [address] [facility] 2 Y Y OF OTHER HOSPITAL HOSPITAL LYMPHATIC STRUCTURE Encounters Encounter Start End Date Code Location Performer Type Date [facility] 7 7 [facility] - 7 7 [facility] WM - 7 7 [facility] - [facility] - 7 7 [facility] - [facility] - [facility] - [facility] 5 5 [facility] 5 5 [facility] CENTRAL - 5 5 [facility] CENTRAL [facility] 5 5 [facility] CENTRAL - 5 5 [facility] CENTRAL - 5 5 [facility] CENTRAL [facility] 5 5 [facility] WM - 5 5 [facility] WM - 5 5 [facility] WM - 5 5 [facility] WM - 4 4 [facility] WM - 4 4 [facility] WM - 4 4 [facility] WM - 4 4 [facility] CENTRAL [facility] 4 4 [facility] WM - [facility] CENTRAL [facility] 4 4 [facility] CENTRAL [facility] 4 4 [facility] WM - 4 4 [facility] CENTRAL [facility] 4 4 [facility] WM - 4 4 [facility] CENTRAL [facility] 3 3 [facility] CENTRAL - 3 3 [facility] CENTRAL [facility] 3 3 [facility] CENTRAL [facility] 3 3 [facility] Emergency MOMO Carrion (ER) 3 11:19 3 12:40 [facility] 2 [facility] Y [facility] UNIVERS[facility] - 2 2 Y [facility] UNIVERSIT - 2 2 Y [facility] UNIVERSIT - 2 2 Y [facility] - 2 2 Y [facility] UNIVERSIT [facility] 2 2 Y [facility] UNIVERSIT - 2 2 Y [facility] UNIVERSIT - 2 2 Y [facility] UNIVERSIT [facility] 2 2 Y [facility] UNIVERSIT - 2 2 Y [facility] WM - 2 2 [facility] WM - 2 2 [facility] WM - 2 2 [facility] WM - 2 2 [facility] WM - 2 2 [facility] WM [facility] 2 2 [facility] WM - 2 2 [facility] [place] - 0 0 [facility] 9 [facility] 8 8 [facility]
--- OUTSIDE RECORDS SUMMARY | 2017-01-09 17:52 | External Medical Summary Rpt | CCD ---
Author Author , ROCÍO Organization ROCÍO Address Unknown Phone [email or web address] Care Team Providers Care Shell Coremaker Name Role Phone A Ashkan CALDWELL MD PSC, Erasmo Unavailable Unavailable Ashkan CALDWELL MD PSC Joaquin CHRISTIE, Unavailable Unavailable Joaquin CHRISTIE, AMANDA Unavailable Unavailable LOW ARNOLD KIMMY, ARNOLD Unavailable Unavailable KIMMY ATTILI ANI, ATTILI Unavailable Unavailable ANI [facility], [facility] Unavailable Unavailable [facility] Unavailable Unavailable [place], [facility] Unavailable Unavailable MEDICAL GROUP, [facility] Unavailable Unavailable [facility], [facility] BROWN DIONIC[facility], [facility] Unavailable Unavailable [facility], Unavailable Unavailable [facility] Unavailable Unavailable [facility], [facility], Unavailable Unavailable [facility] CROSSFIELD, DANNITA, Unavailable Unavailable CROSSFIELD, DANNITA ANDREI CHARLES, Unavailable Unavailable ANDREI CHARLES [facility], Unavailable Unavailable [facility], [facility] Unavailable Unavailable WOODSON JERICA, Unavailable Unavailable WOODSON JERICA [facility] Unavailable Unavailable INC, [facility] Unavailable Unavailable HOSPITAL P, [facility] P [facility] HYACINTH, [facility] Unavailable Unavailable [facility] JAYESH A, Unavailable Unavailable [facility] A [facility], Unavailable Unavailable [facility] Unavailable Unavailable [facility], Unavailable Unavailable [facility] Unavailable Unavailable IM[facility]ING [facility], [facility] KILPELA JEA, KILPELA Unavailable Unavailable JEA EVELYN CHARITY, EVELYN CHARITY Unavailable Unavailable [facility] Unavailable Unavailable HOLDING, [facility] FARZANA ILIR, FARZANA Unavailable Unavailable ILIR ALISIA ANT, ALISIA Unavailable Unavailable ANT OTILIA PAT, OTLIIA Unavailable Unavailable PAT RHONA JERICA, RHONA PIZANO Unavailable Unavailable [facility], Unavailable Unavailable PLL[facility], [facility] PAWSAT MAR, PAWSAT Unavailable Unavailable ANNIE GRIMM, Unavailable Unavailable ANNIE LOJA PURDOM MAT, PURDOM Unavailable Unavailable MAT [id number], Unavailable Unavailable [id number] Unavailable Unavailable [id number] [address] [id number], [facility] [id number] # [id number] JONAS LEON, JONAS Unavailable Unavailable [facility] Unavailable Unavailable E[facility], [facility], Unavailable Unavailable [facility], Unavailable Unavailable [facility] Unavailable Unavailable [facility]available Unavailable #591, [id number], Unavailable Unavailable [facility] Gabino Carrion Unavailable Enrrique CARRANZA MD, Gabino MOLINA [facility], TRACY Unavailable Unavailable LUIS MIGUEL [facility], Unavailable Unavailable [facility] Purpose Continuity of Care Document - 05-02-2007 through 2016 Problems Code Diagnosis DOS Provider Status [id number] MALIGNANT 10-27-2016 [facility] UNS PART ASSOC RIGHT BRONCHUS/ARELY NG J984 OTHER 10-27-[address] 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 UNS EQUIPME B3749 OTHER 09-23-2016 A Ashkan CALDWELL UROGENITAL PSC CANDIDIASIS G894 CHRONIC 09-23-2016 A Ashkan CALDWELL PAIN PSC SYNDROME J9610 CHRONIC 07-30-2016 CT [facility] RESPIRATORY SERV FAIL UNS FOUNDATION HYPOXIA/HYP ERCAPNIA B12801 PERSONAL HX 07-30-2016 CT MEDICAL OTH MALIG SERV NEOPLASM FOUNDATION BRONCHUS & LUNG R0602 SHORTNESS 07-07-2016 [facility] P I10 ESSENTIAL 06-19-2016 [facility] PRIMARY [facility] HYPERTENSIO INC N J209 ACUTE 06-19-2016 [facility] BRONCHITIS [facility] P J440 COPD WITH 06-19-2016 [facility] RESPIRATORY INFECTION J441 CHRONIC 06-19-2016 [facility] OBSTRUCTIVE [facility] P DZ W/EXACERBAT ION N289 DISORDER OF 06-19-2016 [facility], URETER PLLC UNSPECIFIED R0600 DYSPNEA 06-19-2016 [facility] UNSPECIFIED MEM HOSP INC X16519 PERSONAL 06-19-2016 [facility] HISTORY OF PHYSICIANS, NICOTINE PLLC DEPENDENCE Z9981 DEPENDENCE 06-19-2016 [facility] ON [facility] P L OXYGEN R05 COUGH 06-07-2016 [facility] R0989 OTH SPEC SX 06-07-2016 [facility] & SIGNS MEDICAL INVLV THE IMAGING ASS CIRC & RESP SYS R918 OTHER 06-07-2016 [facility] NONSPECIFIC MEM HOSP ABNORMAL INC FINDING OF LUNG FIELD H75062 OTHER LONG 06-07-2016 [facility] TERM MEM HOSP CURRENT INC DRUG THERAPY C3411 MALIGNANT 04-28-2016 [facility] NEOPLASM [facility] UPPER LOBE MEDICAL RT GROUP BRONCHUS/ARELY NG M810 AGE-RELATED 04-28-2016 [facility] OSTEOPOROSI MEDICAL S W/O GROUP CURRNT PATH FX R222 LOCALIZED 03-22-2016 [facility] S[facility]LL[facility] MEDICAL MASS AND LUMP TRUNK R040 EPISTAXIS 03-21-2016 [facility] C3410 MALIGNANT 08-09-2015 [facility] NEOPLASM [facility] UPPER LOBE [place] UNS BRONCHUS/ARELY NG K72888 OTHER 08-09-2015 [facility]OSIS [facility] SITE [facility] UNSPECIFIED H6980 OTHER SPEC 03-18-2015 A Ashkan CALDWELL DISORDERS PSC EUSTACHIAN TUBE UNS EAR Z923 PERSONAL 02-13-2015 [facility] HISTORY OF [facility] IRRADIATION HOSP D649 ANEMIA 12-17-2014 [facility] UNSPECIFIED [facility]ALTH MEDICAL GROUP S55473 CUTANEOUS 11-21-2014 A Ashkan CALDWELL ABSCESS OF PSC LIMB UNSPECIFIED Z23 ENCOUNTER 11-21-2014 A Ashkan CALDWELL FOR PSC IMMUNIZATIO N M546 PAIN IN 11-15-2014 [facility] THORACIC RADIOLOGY SPINE ASSOC H4025IE PATHOLOGICA 11-15-2014 [facility] L FX OTH [facility] SITE HOSP INITIAL ENC FRACTURE 23022 INTRINSIC 11-01-2014 [facility] ASTHMA, PHARMACY UNSPECIFIED LLC 496 CHRONIC 11-01-2014 [facility] OBSTRUCTION [facility] NEC 3384 CHRONIC 10-29-2014 A Ashkan CALDWELL PAIN PSC SYNDROME 90135 UNSPECIFIED 10-29-2014 A Ashkan CALDWELL OTALGIA PSC 7823 EDEMA 10-29-2014 A Ashkan CALDWELL MD [facility] 37727 NAUSEA 10-29-2014 A Ashkan WOODSON MD PSC 7866 SWELLING, 10-21-2014 [facility] MASS, OR MEDCIAL LUMP IN CHEST 1629 MALIGNANT 09-20-2014 [facility] NEOPLASM MEDICAL BRONCHUS&ARELY NG UNSPEC SITE 1623 MALIGNANT 09-17-2014 [facility] NEOPLASM HEALTH UPPER LOBE MEDICAL BRONCHUS OR GROUP LUNG 2859 UNSPECIFIED 09-17-2014 [facility] ANEMIA HEALTH MEDICAL GROUP V661 CONVALESCEN 09-17-2014 [facility] CE HEALTH FOLLOWING MEDICAL RADIOTHERAP GROUP Y V662 CONVALESCEN 09-17-2014 [facility] CE HEALTH FOLLOWING MEDICAL CHEMOTHERAP GROUP Y 96386 CHRONIC 09-10-2014 [facility] OBSTRUCTIVE [facility] ASTHMA HOSP UNSPECIFIED 39128 SENILE 09-10-2014 [facility] OSTEOPOROSI [facility] S HOSP V1011 PERSONAL 09-10-2014 [facility] HISTORY [facility] MALIG HOSP [place]OPLASM BRONCHUS&[place] [address] ESOPHAGEAL 08-20-2014 A Ashkan CALDWELL REFLUX PSC 83231 DISORDER OF 08-06-2014 [facility] BONE AND [facility] UNSPECIFIED 44545 LOSS OF 08-06-2014 [facility] HEIGHT [facility] 29362 PATHOLOGIC 06-14-2014 [facility] FRACTURE OF RADIOLOGY VERTEBRAE ASSOC 94668 OTHER 04-30-2014 A Ashkan WILLIAMSON MD PSC PAIN 4011 ESSENTIAL 04-25-2014 [facility] HYPERTENSIO [facility] N, BENIGN HOSP V5412 AFTERCARE 03-02-2014 [facility] TRA[facility] IM[facility] FRACTURE LOWER ARM V5878 AFTERCARE 03-02-2014 [facility] FOLLOW PHYSICIANS SURGERY GROUP MUSCULOSKEL SYSTEM NEC V571 OTHER 02-16-2014 [facility] PHYSICAL [facility] THERAPY INC 7248 OTHER 01-26-2014 A Ashkan CALDWELL SYMPTOMS PSC REFERABLE TO BACK 8180 ILL-DEFINED 01-26-2014 A Ashkan RECIO MD PSC FRACTURES OF UPPER LIMB 43239 PAIN IN 01-18-2014 [facility] JOINT, MEDICAL FOREARM IMAGING ASS 05769 OTHER 01-18-2014 [facility] CLOSED [facility]OSPITAL P OF DISTAL END OF RADIUS 56623 OPEN WOUND 01-18-2014 [facility] WITHOUT HOSPITAL P MENTION COMPLICATIO N E8889 UNSPECIFIED 01-18-2014 [facility] P 4019 UNSPECIFIED 01-17-2014 WM ESSENTIAL MEM HOSP HYPERTENSIO INC N 69451 ASTHMA, 01-17-2014 [facility] UNSPECIFIED MEM HOSP , INC UNSPECIFIED STATUS 25521 CLOSED 01-17-2014 [facility] FRACTURE MEM HOSP UNSPECIFIED INC PART RAMUS MANDIBLE 9221 CONTUSION 01-17-2014 WM OF CHEST MEM HOSP WALL INC V1582 PERS HX 01-17-2014 WM TOBACCO USE MEM HOSP PRESENTING INC [facility] 7273 OTHER 01-08-2014 A Ashkan CALDWELL BURSITIS PSC DISORDERS 2662 OTHER 11-13-2013 A Ashkan CALDWELL B-COMPLEX PSC DEFICIENCIE S 5853 CHRONIC 10-30-2013 [facility] KIDNEY [facility] DISEASE INC STAGE III (MODERATE) 7944 NONSPECIFIC 10-30-2013 [facility] MEDICAL RESULTS IMAGING ASS KIDNEY FUNCTION STUDY 1122 CANDIDIASIS 10-26-2013 A Ashkan PALM MD PSC UROGENITAL SITES 2809 UNSPECIFIED 10-26-2013 A Ashkan CALDWELL IRON PSC DEFICIENCY ANEMIA V0481 NEED 10-26-2013 A Ashkan CALDWELL PROPHYLACTI [facility] C VACCINATION &INOCULATIO N FLU 32145 OBSTRUCTIVE 09-28-2013 MALCOM CHRONIC DIONICIO BRONCHITIS WITHOUT EXACERBAT 02614 SHORTNESS 09-28-2013 TZOUANAKIS OF BREATH DIONICIO 53470 OTHER 09-25-2013 BADIN FIR NONSPECIFIC ABNORMAL FINDING OF LUNG FIELD 83215 UNSPECIFIED 07-24-2013 [facility], VAGINITIS LLC AND VULVOVAGINI TIS 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 7821 RASH AND 06-30-2013 KILPELA JEA OTHER NONSPECIFIC SKIN ERUPTION 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 12879 OTHER 06-19-2013 ALISIA ANT DYSPNEA AND RESPIRATORY ABNORMALITI ES 7932 NONSPC ABN 06-19-2013 ALISIA ANT FINDNG RAD&OTH EXAM OTH INTRTHOR ORGN 63204 HYPOXEMIA 05-31-2013 TZOUANAKIS DIONICIO 78884 NAUSEA WITH 05-25-2013 [facility] VOMITING [facility] 4928 OTHER 05-19-2013 [facility] EMPHYSEMA [facility] 7295 PAIN IN 05-19-2013 JONAS LEON SOFT TISSUES OF LIMB 13405 SWELLING OF 05-19-2013 [facility] LIMB [facility] V5869 LONG-TERM 05-19-2013 [facility] (CURRENT) [facility] USE OF HOSP OTHER MEDICATIONS 6828 CELLULITIS 05-15-2013 KILPELA JEA AND ABSCESS OF OTHER SPECIFIED SITE 7881 DYSURIA 05-08-2013 KILPELA JEA 7862 COUGH 04-14-2013 KILPELA JEA 58357 PAIN IN 02-20-2013 [facility] JOINT, [facility] LOWER LEG INC 9597 INJURY 02-09-2013 KILPELA JEA OTHER&UNSPE CIFIED KNEE LEG ANKLE&FOOT 36469 PAIN IN 12-05-2012 A Ashkan DUMONT MD PSC MULTIPLE SITES 92683 BURN TRUNK 12-05-2012 A Ashkan QUIROS MD PSC DEGREE OTHER&MULTI PLE SITES 490 BRONCHITIS 10-12-2012 A Ashkan ROBERTS MD PSC SPECIFIED ACUTE OR CHRONIC 1625 MALIGNANT 09-21-2012 [facility] NEOPLASM [facility] LOWER LOBE HOSP BRONCHUS OR LUNG V671 RADIOTHERAP 09-21-2012 [facility] Y FOLLOW-UP [facility] H[facility]P EXAMINATION V672 CHEMOTHERAP 09-21-2012 [facility] Y FOLLOW-UP [facility] EXAMINATION 4660 ACUTE 07-28-2012 A Ashkan CALDWELL BRONCHITIS PSC 3383 NEOPLASM 07-19-2012 BADIN FIR RELATED PAIN ACUTE CHRONIC V580 RADIOTHERAP 07-19-2012 [facility] Y [facility] 20281 CHRONIC 07-09-2012 [facility] RESPIRATORY MEM HOSP FAILURE INC 44733 UNSPECIFIED 06-27-2012 A Ashkan CALDWELL MD PSC OSTEOPOROSI S 37210 WHEEZING 06-27-2012 A Ashkan CALDWELL MD PSC 5271 HYPERTROPHY 04-14-2012 [facility] OF [facility] SALIVARY HOSP GLAND 4779 ALLERGIC 04-11-2012 KILPELA JEA RHINITIS CAUSE UNSPECIFIED 7820 DISTURBANCE 04-11-2012 KILPELA JEA OF SKIN SENSATION 4619 ACUTE 03-23-2012 KILPELA JEA SINUSITIS, UNSPECIFIED 14247 URINARY 03-23-2012 KILPELA JEA FREQUENCY 162.9 162.9 MAL 03-14-2012 Burton WENDY [facility] BRONCH/LUNG Hospital NOS 285.9 285.9 03-14-2012 Burton ANEMIA NOS [facility] 401.9 401.9 03-14-2012 Burton HYPERTENSIO [facility] Hospital 780.79 780.79 OTH 03-14-2012 Burton MALAISE&FAT [facility] IGUE Hospital 787.02 787.02 03-14-2012 Burton NAUSEA [facility] V5811 ENCOUNTER 02-16-2012 [facility] FOR [facility] ANTINEOPLAS HOSP TIC CHEMOTHERAP Y 5122 POSTOPERATI 01-14-2012 [facility] 22212 OTHER 01-14-2012 TRACY LUIS MIGUEL PNEUMOTHORA X 5119 UNSPECIFIED 01-07-2012 ATTILI ANI PLEURAL EFFUSION 1970 SECONDARY 01-06-2012 AMANDA LOW MALIGNANT NEOPLASM OF LUNG V550 ATTENTION 12-28-2011 KING CHARITY TO TRACHEOSTOM Y 5180 PULMONARY 12-26-2011 DISANTIS COLLAPSE LYNN[place]TE 56829 EMPHYSEMA 12-26-2011 DISANTIS RESULTING LYNNETTE FROM A PROCEDURE NEC 1639 MALIGNANT 12-25-2011 [facility] [facility] UNSPECIFIED SITE V679 UNSPECIFIED 12-25-2011 ATTILI ANI FOLLOW-UP EXAMINATION 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 76946 GENERALIZED 12-17-2011 FARZANA ILIR OSTEOARTHRO SIS UNSPECIFIED SITE 88452 OSTEOARTHRO 12-16-2011 [facility] WHETHER GEN/LOC UNSPEC SITE V711 OBSERVATION 12-09-2011 WOODSON FOR JER[place] SUSPECTED MALIGNANT NEOPLASM 2357 NEOPLASM 12-08-2011 OTILIA PAT UNCERTAIN BEHAVIOR [place] BRONCHUS&[place] [address] COR 12-08-2011 ATTILI ANI ATHEROSLERO UNSPEC TYPE VESSEL [place]/TANIKA T 500 COAL 12-08-2011 OTILIA PAT WORKERS PNEUMOCONIO SIS 7969 OTHER 12-08-2011 PURDOM MAT NONSPECIFIC ABNORMAL FINDING 78078 OTHER 11-18-2011 [facility] DISEASES OF MEDICAL LUNG NOT IMAGING ASS ELSEWHERE CLASSIFIED 00091 NUCLEAR 10-19-2011 [place] HYACINTH SCLEROSIS 64418 PAIN IN 10-13-2011 BROWN DIONICIO JOINT, SITE UNSPECIFIED V036 NEED PROPH 09-30-2011 RHONA JERICA VACC&INOCUL AT AGAINST PERTUSS ALONE 3319 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 3558 UNSPECIFIED 09-20-2011 WM MEM HOS[facility] MONONEURITI INC S OF LOWER LIMB 4439 UNSPECIFIED 09-18-2011 [facility] PERIPHERAL MEDICAL VASCULAR IMAGING ASS DISEASE 33076 ATHEROSLERO 09-08-2011 RHONA JERICA [place] ART EXTREMITIES W/ULCERATIO N 8911 OPEN WOUND 09-08-2011 RHONA JERICA OF KNEE LEG AND ANKLE COMPLICATED 10112 CHEST PAIN 09-02-2011 [facility] UNSPECIFIED MEDICAL IMAGING ASS 53275 PAINFUL 09-02-2011 [facility] RESPIRATION MEM HOSP INC 8052 CLOS FX 09-02-2011 WM DORS MEM HOSP VERTEBRA INC W/O MENTION SP CORD INJURY 12928 OSTEOARTHRO 07-20-2011 EMPI INC S INVLV MX SITES BUT NOT SPEC GEN 7245 UNSPECIFIED 07-20-2011 EMPI INC BACKACHE 85528 ENTHESOPATH 07-10-2011 PAWSAT MAR Y OF UNSPECIFIED SITE 9243 CONTUSION 07-10-2011 WM OF TOE MEM HOSP INC 20829 OBSTRUCTIVE 05-22-2011 ARNOLD KIMMY CHRONIC BRONCHITIS WITH EXACERBATIO N 82882 PAIN IN 05-22-2011 ARNJAG KIMMY JOINT, ANKLE AND FOOT 2382 NEOPLASM OF 09-23-2010 [facility] UNCERTAIN MEDICAL BEHAVIOR OF CLINIC SKIN 4910 SIMPLE 06-03-2010 [facility] CHRONIC MEDICAL BRONCHITIS CLINIC V7612 OTHER 11-21-2009 [facility] [place] SCREENING RADIOLOGY MAMMOGRAM 2720 PURE 11-20-2009 LAB ELO HYPERCHOLES [employer] 2724 OTHER AND 11-20-2009 [facility] UNSPECIFIED MEDICAL CLINIC HYPERLIPIDE YAAKOV 7242 LUMBAGO 10-30-2009 [facility] MEDICAL CLINIC 26496 OSTEOARTHRO 11-05-2008 PROFESSIONA SIS UNSPEC L REHAB WHETHER ASSOC PSC GEN/LOC LOWER LEG 7197 DIFFICULTY 11-05-2008 PROFESSIONA IN WALKING L REHAB ASSOC PSC 71124 GEN 10-10-2008 [facility] OSTEOARTHRO MEDICAL SIS CLINIC INVOLVING MULTIPLE SITES V4981 ASYMPTOMATI 09-04-2008 [facility] [place] C RADIOLOGY POSTMENOPAU REGINE STATUS 70218 CRAMP OF 08-30-2008 [facility] LIMB MEDICAL CLINIC 70322 OTHER 09-22-2007 [place], CHRONIC JAYESH A ALLERGIC CONJUNCTIVI TIS 6929 CONTACT 09-19-2007 [facility] DERMATITIS& MEDICAL OTHER CLINIC ECZEMA DUE [...] ti ML ve Sy ri ng e WI 00 09 09 1 12 5 RI [...] RU 8 O P # 03 93 WI 00 09 09 1 12 5 RI [...] E ve 54 20 20 0 AI DE 86 08 08 D CH 7 PH [...] 91 60 01 03 00 36 9 TN 44 No Ac 25 -3 -2 0. L- 65 t ti 80 1- 6- 00 MA 92 Av ve 71 20 20 0 RT 2 ai 41 08 08 la 6 PH bl AR e MA CY #5 91 60 12 03 03 36 9 TN 44 No Ac 25 -2 -2 0. [...] 91 60 12 03 02 36 9 TN 44 No Ac 25 -2 -2 0. [...] 30 ed nc 10:21 Comment: Serial Number: [id number]: [id number] Comp Metab 1998 Pnl SerPl (04-28-2016 10:59) [...] 30 ed nc 11:47 Comment: Serial Number: [id number] Road Supervisor Of Engines: [id number] Creat Bld-mCnc (12-16-2015 11:23) Creat 1.10 0.60-1. complet BldA-mC 016 mg/dL 30 ed nc 11:23 Comment: Serial Number: [id number] Road Supervisor Of Engines: [id number] COMPREHENSIVE METABOLIC PANEL (03-14-2012 11:00) Glucose 103 [...] DOS Code Location Performer Comment THORACOSC [address] [facility] 2 Y Y PLEURAL [facility] BIOPSY THORACOSC [address] [facility] LUNG 2 Y Y BIOPSY HOSPITAL HOSPITAL SIMPLE 40[address] [facility] 2 Y Y OF OTHER HOSPITAL HOSPITAL LYMPHATIC STRUCTURE Encounters Encounter Start End Date Code Location Performer Type Date HOSPITAL [facility] - 7 7 [facility] - 7 7 [facility] WM - 7 7 [facility] WM - 7 7 [facility] - 7 [facility] - 7 7 [facility] - 6 6 [facility] - 6 [facility] - 6 6 [facility] - 6 6 [facility] - 6 6 [facility] - 5 5 [facility] - 5 5 [facility] - 5 5 [facility] - 5 5 [facility] - 5 5 [facility] - 5 5 [facility] - 5 5 [facility] - 5 5 [facility] - 5 5 [facility] - 5 5 MEM H[facility]PATIEN [facility] WM - 5 5 [facility] OUTPATIEN [facility] WM - 5 5 [facility] OUTPATIEN [facility] WM - 4 4 MEM H[facility]P OUTPATIEN [facility] WM - 4 4 MEM H[facility]P OUTPATIEN [facility] WM - 4 4 MEM H[facility]P OUTPATIEN [facility] WM - 4 4 [facility]PATIEN [facility] CENTRAL - 4 4 [facility] - 4 [facility] 4 [facility] - 4 4 [facility] - 4 4 [facility] WM - 4 4 MEM [facility]PATIEN [facility] CENTRAL - 4 4 [facility] WM - 4 4 [facility]PATIEN [facility] CENTRAL - 3 3 [facility] - 3 3 [facility] - 3 3 [facility] - 3 3 [facility] - 3 3 [facility] - 3 3 [facility]EN [facility] Emergency MOMO Carrion (ER) 3 11:19 3 12:40 [facility]TRAL - 3 3 [facility] OTHER 2 2 Y [facility] - 2 2 [facility] - 2 2 Y [facility] - 2 2 Y [facility] - 2 2 Y [facility] - 2 2 Y [facility] - 2 2 Y [facility] - 2 2 Y [facility] - 2 2 Y [facility] - 2 2 Y [facility] - 2 2 Y [facility] - 2 2 Y [facility] - 2 2 [facility] WM - 2 2 [facility] WM - 2 2 [facility] WM - 2 2 [facility] WM - 2 2 [facility] WM - 2 2 [facility] WM - 2 2 [facility] - 0 0 [facility] - 9 9 [facility] - 9 9 [facility] - [address] [facility]
[2017-01-09 17:54] LABS: VENOUS ABE -2.3 MMOL/L (-2.4-2.3); VENOUS TCO2 20.9 MMOL/L (23-27)
--- OUTSIDE RECORDS SUMMARY | 2017-01-09 17:58 | External Medical Summary Rpt | CCD ---
Author Author , ROCÍO BRANDONTRINIDAD Address Unknown Phone [email or web address] Team Providers Care Adjuster And Inspector Name Role Phone A Ashkan CALDWELL MD PSC, Erasmo Unavailable Unavailable Joaquin BOYCE MD, Unavailable Unavailable Joaquin CHRISTIE, AMANDA Unavailable Unavailable LOW ARNOLD KIMMY, ARNOLD Unavailable Unavailable KIMMY ATTILI ANI, ATTILI Unavailable Unavailable ANI [facility], [facility] Unavailable Unavailable [facility] Unavailable Unavailable [facility] Unavailable Unavailable MEDICAL GROUP, [facility] Unavailable [facility]available [facility], [facility] BROWN DIONICIO, [facility]OWN [facility] Unavailable Unavailable [facility], [facility]available Unavailable [facility] Unavailable Unavailable [facility], [facility], Unavailable Unavailable [facility] CROSSFIELD, DANNITA, Unavailable Unavailable CROSSFIELD, DANNITA NADREI CHARLES, Unavailable Unavailable ANDREI CHARLES [facility], Unavailable Unavailable [facility], [facility] Unavailable Unavailable WOODSON JERICA, Unavailable Unavailable WOODSON JERICA [facility] Unavailable Unavailable INC, [facility] Un[facility]available [facility] P, [facility], [facility] Unavailable Unavailable THEE JAYESH A, Unavailable Unavailable THEE JAYESH A [facility], Unavailable Unavailable [facility], Unavailable Unavailable [facility], Unavailable Unavailable [facility] Unavailable Unavailable [facility], [facility] KILPELA JEA, KILPELA Unavailable Unavailable JEA EVELYN CHARITY, EVELYN CHARITY Unavailable Unavailable [facility] Unavailable Unavailable [facility], [facility] FARZANA CELESTE Unavailable Unavailable ILIR RIBERA, ALISIA Unavailable Unavailable MOUNIKA BINGHAM PAT, OTILIA Unavailable Unavailable PAT RHONA JERICA, RHONA JERICA Unavailable Unavailable [facility], Unavailable Unavailable PLL[facility], [facility] PAWSAT MAR, PAWSAT Unavailable Unavailable MAR ANNIE LOJA, Unavailable Unavailable ANNIE LOJA PURDOM MAT, PURDOM Unavailable Unavailable MAT [id number], Unavailable Unavailable [id number] Unavailable Unavailable [id number] [address] [id number], [facility] [id number] [address] [id number] JONAS LEON, JONAS Unavailable Unavailable [facility] Unavailable Unavailable [facility], [facility], Unavailable Unavailable [facility], [facility]available [facility]available [facility] Unavailable [facility]available [facility] Unavailable Unavailable #591, [id number], [facility]available Unavailable [id number] TRACY LUIS MIGUEL, TRACY Unavailable Unavailable LUIS MIGUEL [facility], Unavailable Unavailable [facility] Purpose Continuity of Care Document - 05-02-2007 through 2016 Problems Code Diagnosis DOS Provider Status [id number] MALIGNANT 10-27-2016 [facility] UNS PART ASSOC RIGHT BRONCHUS/ARELY NG J984 OTHER 10-27-2016 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 UNS EQUIPME B3749 OTHER 09-23-2016 A Ashkan CALDWELL UROGENITAL PSC CANDIDIASIS G894 CHRONIC 09-23-2016 A Ashkan CALDWELL PAIN PSC SYNDROME J9610 CHRONIC 07-30-2016 [facility] SERV FAIL UNS FOUNDATION HYPOXIA/HYP ERCAPNIA C58373 PERSONAL HX 07-30-2016 [facility]TH MALIG SERV NEOPLASM FOUNDATION BRONCHUS & LUNG R0602 SHORTNESS 07-07-2016 [facility] P I10 ESSENTIAL 06-19-2016 [facility] HYPERTENSIO INC N J209 ACUTE 06-19-2016 [facility] UNSPECIFIED HOSPITAL P J440 COPD WITH 06-19-2016 [facility] RESPIRATORY INFECTION J441 CHRONIC 06-19-2016 [facility] P DZ W/EXACERBAT ION N289 DISORDER OF 06-19-2016 [facility] URETER [facility] UNSPECIFIED R0600 DYSPNEA 06-19-2016 [facility] UNSPECIFIED MEM HOS[facility] INC P87320 PERSONAL 06-19-2016 [facility] HISTORY OF PHYSICIANS, NICOTINE PLLC DEPENDENCE Z9981 DEPENDENCE 06-19-2016 [facility] ON [facility] P L OXYGEN R05 COUGH 06-07-2016 [facility] R0989 OTH SPEC SX 06-07-2016 [facility] & [facility]NS [facility] INVLV THE IMAGING ASS CIRC & RESP SYS R918 OTHER 06-07-2016 [facility] NONSPECIFIC MEM HOS[facility] ABNORMAL INC FINDING OF LUNG FIELD J99448 OTHER LONG 06-07-2016 [facility] TERM MEM HOS[facility] CURRENT INC DRUG THERAPY C3411 MALIGNANT 04-28-2016 [facility] NEOPLASM HEALTH UPPER LOBE MEDICAL RT GROUP BRONCHUS/ARELY NG M810 AGE-RELATED 04-28-2016 [facility] HEALTH OSTEOPOROSI MEDICAL S W/O GROUP CURRNT PATH FX R222 LOCALIZED 03-22-2016 [facility] S[facility]LL[facility] MEDICAL MASS AND LUMP TRUNK R040 EPISTAXIS 03-21-2016 [facility] C3410 MALIGNANT 08-09-2015 [facility] NEOPLASM HEALTH UPPER LOBE [place] UNS BRONCHUS/ARELY NG Z11023 OTHER 08-09-2015 [facility] KYPHOSIS HEALTH SITE [place] UNSPECIFIED H6980 OTHER SPEC 03-18-2015 A Ashkan DUMONT MD [facility] EUSTACHIAN TUBE UNS EAR Z923 PERSONAL 02-13-2015 [facility] HISTORY OF [facility] IRRADIATION HOSP D649 ANEMIA 12-17-2014 [facility] UNSPECIFIED HEALTH MEDICAL GROUP [id number] CUTANEOUS 11-21-2014 A Ashkan CALDWELL ABSCESS OF [facility] LIMB UNSPECIFIED Z23 ENCOUNTER 11-21-2014 A Ashkan CHRISTIANSON MD [facility] IMMUNIZATIO N M546 PAIN IN 11-15-2014 [facility] TH[facility]ACIC RADI[facility]Y SPINE ASSOC B2526AV PATHOLOGICA 11-15-2014 [facility] L FX OTH [facility] SITE HOSP INITIAL ENC FRACTURE 51986 INTRINSIC 11-01-2014 [facility] ASTHMA, PHARMACY UNSPECIFIED LLC 496 CHRONIC 11-01-2014 [facility] OBSTRUCTION [facility] NEC 3384 CHRONIC 10-29-2014 A Ashkan DAVIDSON MD [facility] SYNDROME 01655 UNSPECIFIED 10-29-2014 A Ashkan MOORE MD [facility] 7823 EDEMA 10-29-2014 A Ashkan CALDWELL MD [facility] 63585 NAUSEA 10-29-2014 A Ashkan WOODSON MD [facility] 7866 SWELLING, 10-21-2014 [facility] MASS, OR MEDCIAL LUMP IN CHEST 1629 MALIGNANT 09-20-2014 [facility] NEOPLASM MEDICAL BRONCHUS&ARELY NG UNSPEC SITE 1623 MALIGNANT 09-17-2014 [facility] NEOPLASM HEALTH UPPER LOBE MEDICAL BRONCHUS OR GROUP LUNG 2859 UNSPECIFIED 09-17-2014 [facility] ANEMIA HEALTH MEDICAL GROUP V661 CONVALESCEN 09-17-2014 [facility] CE HEALTH FOLLOWING MEDICAL RADIOTHERAP GROUP Y V662 CONVALESCEN 09-17-2014 [facility] CE HEALTH FOLLOWING MEDICAL CHEMOTHERAP GROUP Y 69867 CHRONIC 09-10-2014 [facility] OBSTRUCTIVE [facility] ASTHMA HOSP UNSPECIFIED 28716 SENILE 09-10-2014 [facility] OSTEOPOROSI [facility] S HOSP V1011 PERSONAL 09-10-2014 [facility] HISTORY [facility] MALIG HOSP NEOPLASM BRONCHUS&[place] [address] ESOPHAGEAL 08-20-2014 A Ashkan CALDWELL REFLUX PSC 62318 DISORDER OF 08-06-2014 [facility] BONE AND [facility] CARTILAGE HOSP UNSPECIFIED 03088 LOSS OF 08-06-2014 [facility] HEIGHT [facility] 67351 PATHOLOGIC 06-14-2014 [facility] FRACTURE OF RADIOLOGY VERTEBRAE ASSOC 16003 OTHER 04-30-2014 A Ashkan WILLIAMSON MD PSC PAIN 4011 ESSENTIAL 04-25-2014 [facility] HYPERTENSIO [facility] N, BENIGN HOSP V5412 AFTERCARE 03-02-2014 [facility] FRACTURE LOWER ARM V5878 AFTERCARE 03-02-2014 [facility] FOLLOW PHYSICIANS SURGERY GROUP MUSCULOSKEL SYSTEM NEC V571 OTHER 02-16-2014 [facility] PH[facility]ICAL [facility] THERAPY INC 7248 OTHER 01-26-2014 A Ashkan CALDWELL SYMPTOMS PSC REFERABLE TO BACK 8180 ILL-DEFINED 01-26-2014 A Ashkan RECIO MD PSC FRACTURES OF UPPER LIMB 56058 PAIN IN 01-18-2014 [place] JOINT, MEDICAL FOREARM IMAGING ASS 30672 OTHER 01-18-2014 [facility] CLOSED [facility] FRACTURES HOSPITAL P OF DISTAL END OF RADIUS 78376 OPEN WOUND 01-18-2014 [facility] WRIST [facility] WITHOUT HOSPITAL P MENTION COMPLICATIO N E8889 UNSPECIFIED 01-18-2014 [facility] P 4019 UNSPECIFIED 01-17-2014 [facility] ESSENTIAL [facility] HYPERTENSIO INC N 21035 ASTHMA, 01-17-2014 [facility] UNSPECIFIED [facility] , INC UNSPECIFIED STATUS 58844 CLOSED 01-17-2014 [facility] FRACTURE MEM HOS[facility] UNSPECIFIED INC PART RAMUS MANDIBLE 9221 CONTUSION 01-17-2014 WM OF CHEST MEM HOSP WALL INC V1582 PERS HX 01-17-2014 WM TOBACCO USE MEM HOSP PRESENTING INC [facility]ZARDS [facility] 7273 OTHER 01-08-2014 A Ashkan CALDWELL BURSITIS PSC DISORDERS 2662 OTHER 11-13-2013 A Ashkan CALDWELL BBRIAN BUCKNER PSC DEFICIENCIE S 5853 CHRONIC 10-30-2013 WM KIDNEY [facility] DISEASE INC STAGE III (MODERATE) 7944 NONSPECIFIC 10-30-2013 [facility] MEDICAL RESULTS IMAGING ASS KIDNEY FUNCTION STUDY 1122 CANDIDIASIS 10-26-2013 A Ashkan PALM MD PSC UROGENITAL SITES 2809 UNSPECIFIED 10-26-2013 A Ashkan CALDWELL IRON PSC DEFICIENCY ANEMIA V0481 NEED 10-26-2013 A Ashkan CALDWELL PROPHYLACTI [facility] C VACCINATION &INOCULATIO N FLU 60373 OBSTRUCTIVE 09-28-2013 [facility] CHRONIC DIONICIO BRONCHITIS WITHOUT EXACERBAT 61071 SHORTNESS 09-28-2013 ROSIEOUANAKIS OF BREATH DIONICIO 55647 OTHER 09-25-2013 [facility] FIR NONSPECIFIC ABNORMAL FINDING OF LUNG FIELD 52049 UNSPECIFIED 07-24-2013 [facility] VAGINITIS [facility] AND VULVOVAGINI TIS 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 7821 RASH AND 06-30-2013 KILPELA JEA OTHER NONSPECIFIC SKIN ERUPTION 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 38651 OTHER 06-19-2013 [facility] ANT DYSPNEA AND RESPIRATORY ABNORMALITI ES 7932 NONSPC ABN 06-19-2013 AL[facility]IA ANT FINDNG RAD&OTH EXAM OTH INTRTHOR ORGN 47120 HYPOXEMIA 05-31-2013 TZOUANAKIS DIONICIO 70091 NAUSEA WITH 05-25-2013 [facility] VOMITING [facility] 4928 OTHER 05-19-2013 [facility] EMPHYSEMA [facility] 7295 PAIN IN 05-19-2013 JONAS LEON SOFT TISSUES OF LIMB 97443 SWELLING OF 05-19-2013 [facility] LIMB [facility] V5869 LONG-TERM 05-19-2013 [facility] (CURRENT) [facility] USE OF HOSP OTHER MEDICATIONS 6828 CELLULITIS 05-15-2013 KILPELA JEA AND ABSCESS OF OTHER SPECIFIED SITE 7881 DYSURIA 05-08-2013 KILPELA JEA 7862 COUGH 04-14-2013 KILPELA JEA 24074 PAIN IN 02-20-2013 WM JOINT, MEM HOSP LOWER LEG INC 9597 INJURY 02-09-2013 KILPELA JEA OTHER&UNSPE CIFIED KNEE LEG ANKLE&FOOT 57969 PAIN IN 12-05-2012 A Ashkan DUMONT MD PSC MULTIPLE SITES 53291 BURN TRUNK 12-05-2012 A Ashkan QUIROS MD PSC DEGREE OTHER&MULTI PLE SITES 490 BRONCHITIS 10-12-2012 A Ashkan ROBERTS MD PSC SPECIFIED ACUTE OR CHRONIC 1625 MALIGNANT 09-21-2012 [facility] NEOPLASM [facility] LOWER LOBE HOSP BRONCHUS OR LUNG V671 RADIOTHERAP 09-21-2012 [facility] Y FOLLOW-UP [facility] EXAMINATION V672 CHEMOTHERAP 09-21-2012 [facility] Y FOLLOW-UP [facility] EXAMINATION 4660 ACUTE 07-28-2012 A Ashkan SMITH MD PSC 3383 NEOPLASM 07-19-2012 B[facility] FIR RELATED PAIN ACUTE CHRONIC V580 RADIOTHERAP 07-19-2012 [facility] Y [facility] 56467 CHRONIC 07-09-2012 [facility] RESPIRATORY MEM HOSP FAILURE INC 76063 UNSPECIFIED 06-27-2012 A Ashkan CALDWELL MD PSC OSTEOPOROSI S 42584 WHEEZING 06-27-2012 A Ashkan CALDWELL MD PSC 5271 HYPERTROPHY 04-14-2012 [facility] OF [facility] SALIVARY HOSP GLAND 4779 ALLERGIC 04-11-2012 KILPELA JEA RHINITIS CAUSE UNSPECIFIED 7820 DISTURBANCE 04-11-2012 KILPELA JEA OF SKIN SENSATION 4619 ACUTE 03-23-2012 KILPELA JEA SINUSITIS, UNSPECIFIED 73464 URINARY 03-23-2012 KILPELA JEA FREQUENCY V5811 ENCOUNTER 02-16-2012 [facility] FOR [facility] ANTINEOPLAS HOSP TIC CHEMOTHERAP Y 5122 POSTOPERATI 01-14-2012 [facility] 62520 OTHER 01-14-2012 [facility] PNEUMOTHORA X 5119 UNSPECIFIED 01-07-2012 ATTILI ANI PLEURAL EFFUSION 1970 SECONDARY 01-06-2012 AMANDA LOW MALIGNANT NEOPLASM OF LUNG V550 ATTENTION 12-28-2011 EVELYN CHARITY TO TRACHEOSTOM Y 5180 PULMONARY 12-26-2011 DISANTIS COLLAPSE LYNNETTE 15690 EMPHYSEMA 12-26-2011 DISANTIS RESULTING LYNNETTE FROM A PROCEDURE NEC 1639 MALIGNANT 12-25-2011 [facility] P[facility]A HOSPI UNSPECIFIED SITE V679 UNSPECIFIED 12-25-2011 ATTILI ANI FOLLOW-UP EXAMINATION V8801 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 18946 GENERALIZED 12-17-2011 FARZANA HAZEL OSTEOARTHRO SIS UNSPECIFIED SITE 44946 OSTEOARTHRO 12-16-2011 [facility] WHETHER GEN/LOC UNSPEC SITE V711 OBSERVATION 12-09-2011 WOOD[facility] FOR [facility]ERICA SUSPECTED MALIGNANT NEOPLASM 2357 NEOPLASM 12-08-2011 OTILIA STEWART UNCERTAIN BEHAVIOR [place] BRONCHUS&[place] [address] COR 12-08-2011 ATTILI ANI ATHEROSLERO UNSPEC TYPE VESSEL NORTHWAY/TANIKA T 500 COAL 12-08-2011 OTILIA STEWART WORKERS PNEUMOCONIO SIS 7969 OTHER 12-08-2011 PURDOM MAT NONSPECIFIC ABNORMAL FINDING 39890 OTHER 11-18-2011 [place] DISEASES OF MEDICAL LUNG NOT IMAGING ASS ELSEWHERE CLASSIFIED 43810 NUCLEAR 10-19-2011 [facility] [facility]AC[facility] SCLEROSIS 71873 PAIN IN 10-13-2011 [facility] DIONICIO JOINT, SITE UNSPECIFIED V036 NEED PROPH 09-30-2011 RHONA JEIRCA VACC&INOCUL AT AGAINST PERTUSS ALONE 3319 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 3558 UNSPECIFIED 09-20-2011 WM MEM HOS[facility] MONONEURITI INC S OF LOWER LIMB 4439 UNSPECIFIED 09-18-2011 [facility] PER[facility]AL [facility] VASCULAR IMAGING ASS DISEASE 90224 ATHEROSLERO 09-08-2011 RHONA JER[place]TH[place] ART EXTREMITIES W/ULCERATIO N 8911 OPEN WOUND 09-08-2011 RHONA JERICA OF KNEE LEG AND ANKLE COMPLICATED 50258 CHEST PAIN 09-02-2011 [facility] UNSPECIFIED [facility]ICAL IMAGING ASS 91146 PAINFUL 09-02-2011 [facility] RESPIRATION [facility]OS[facility] INC 8052 CLOS FX 09-02-2011 WM DORS MEM HOSP VERTEBRA INC W/O MENTION SP CORD INJURY 16063 OSTEOARTHRO 07-20-2011 E[facility] INC S INVLV MX SITES BUT NOT SPEC GEN 7245 UNSPECIFIED 07-20-2011 E[facility] INC BACKACHE 68854 ENTHESOPATH 07-10-2011 PAWSAT MAR Y OF UNSPECIFIED SITE 9243 CONTUSION 07-10-2011 WM OF TOE MEM HOSP INC 28323 OBSTRUCTIVE 05-22-2011 ARNOLD KIMMY CHRONIC BRONCHITIS WITH EXACERBATIO N 47711 PAIN IN 05-22-2011 SARITHA KIMMY JOINT, ANKLE AND FOOT 2382 NEOPLASM OF 09-23-2010 [facility] OF CLINIC SKIN 4910 SIMPLE 06-03-2010 [facility] CHRONIC MEDICAL BRONCHITIS CLINIC V7612 OTHER 11-21-2009 [facility] [place] SCREENING RADIOLOGY MAMMOGRAM 2720 PURE 11-20-2009 LAB [facility] HYPERCHOLES [facility] TEROLEMIA HOLDING 2724 OTHER AND 11-20-2009 [facility] UNSPECIFIED MEDICAL CLINIC HYPERLIPIDE YAAKOV 7242 LUMBAGO 10-30-2009 [facility] 04395 OSTEOARTHRO 11-05-2008 [facility]IS UNSPEC L REHAB WHETHER ASSOC PSC GEN/LOC LOWER LEG 7197 DIFFICULTY 11-05-2008 [facility] IN WALKING L REHAB ASSOC PSC 67003 GEN 10-10-2008 [facility] OSTEOARTHRO MEDICAL SIS CLINIC INVOLVING MULTIPLE SITES V4981 ASYMPTOMATI 09-04-2008 [facility] [place] C RADIOLOGY POSTMENOPAU REGINE STATUS 65969 CRAMP OF 08-30-2008 [facility] 15535 OTHER 09-22-2007 [place], CHRONIC JAYESH A ALLERGIC CONJUNCTIVI TIS 6929 CONTACT 09-19-2007 [facility] DERMATITIS& MEDICAL OTHER CLINIC ECZEMA DUE UNSPEC CAUSE Medications Na ND Rx Da Fi Fi Am Da Di Ph RX Ph St me C No te ll ll ou ys ag ar # ys at rm s nt no ma ic us Or Da si cy ia de te s n re d 64 10 11 8. 28 00 RI Ac T 38 -2 -2 00 00 TE ti D2 00 3- 4- 0 01 ve 73 20 20 18 AI 1. 70 17 17 73 D 25 6 85 PH AR MG MA CY (5 0, #3 00 93 0 8 UN IT ) FE 00 10 11 30 30 00 RI Ac RR 90 -2 -2 .0 00 TE ti OU 47 3- 4- 00 01 ve S 59 20 20 19 AI JACOBS 16 17 17 02 D LF 0 63 PH AT AR E MA 32 CY 5 MG #3 93 TA 8 BL ET FE 00 09 10 30 30 00 [...] MG #3 93 TA 8 BL ET OK 00 09 09 1 12 5 RI [...] RU 8 O P # 03 93 OK 00 09 09 1 12 5 RI [...] TE 06 RE ti AT 31 6- 3 00 37 Z, ve US 07 20 [...] 0. TE 06 RE ti AT 31 6 6 00 37 Z, ve US 07 20 20 0 AI SI 55 10 10 D JR N 8 PH ., AC AR MA DO SY CY RU OS P 03 CA 93 R 8 O # 03 93 CH 00 06 06 3 36 6 RI 83 PE Ac ER 60 -1 -2 0. TE 80 RE ti AT 31 4 9 00 37 Z, ve US 07 20 20 0 AI SI 55 10 10 D JR N 8 PH ., AC AR MA DO SY CY RU OS P 03 CA 93 R 8 O # 03 93 CH 00 06 06 3 36 6 RI 83 PE Ac ER 60 -1 -2 0. TE 80 RE ti AT 31 4- 4 00 37 Z, ve US 07 20 [...] TE 51 RE ti AT 31 4- 9- 00 88 Z, ve US 07 20 [...] 0. TE 53 RE ti AT 31 1 9- 00 17 Z, ve US 07 20 20 0 AI SI 55 08 08 D JR N 8 PH ., AC AR M DO SY #3 RU 93 OS P 8 CA R O CH 00 08 09 03 36 10 RI 74 PE Ac ER 60 -1 -2 0. TE 53 RE ti AT 31 1 6- 00 17 Z, ve US 07 [...] OS 8 CA R O CH 00 07 [...] E ve 54 20 20 0 AI MA 86 08 08 D CH 7 PH [...] 91 60 01 03 00 36 9 WA 44 No Ac 25 -3 -2 0. L- 65 t ti 80 1- 6- 00 MA 92 Av ve 71 20 20 0 RT 2 ai 41 08 08 la 6 PH bl AR e MA CY #5 91 60 12 03 03 36 9 WA 44 No Ac [...] 91 60 12 03 02 36 9 WA 44 No Ac [...] bl AR e MA CY #5 91 Procedures Procedure DOS Code Location Performer Comment [facility] 2 Y Y [facility]URAL [facility] BIOPSY TH[facility]ACOSC [facility] LUNG 2 Y Y BIOPSY [facility] SIMPLE [facility] 2 Y Y OF OTHER [facility] HOSPITAL LYMPHATIC STRUCTURE Encounters Encounter Start End Date Code Location Performer Type Date [facility] - 7 7 [facility] - 7 [facility] - 6 [facility] 6 6 [facility] - 6 6 [facility] C[facility]TR[facility] - 5 5 [facility] C[facility] - 5 5 [facility] C[facility]TRAL - 5 5 [facility] CENTRAL - 5 5 [facility] CENTRAL - 5 5 [facility] CENTRAL - 5 5 [facility] CENTRAL - 5 5 [facility] CENTRAL - 5 5 [facility] CENTRAL - 5 5 [facility] WM - 5 5 MEM HOSP OUTPATIEN [facility] WM - 5 5 MEM H[facility] OUTPATIEN [facility] WM - 5 5 [facility] OUTPATI[facility] WM - 4 4 [facility] - 4 4 [facility] WM - 4 4 [facility] OUTPATIEN [facility] CENTRAL - 4 4 [facility] WM - 4 4 [facility] HOS[facility] OUTPATIEN [facility] CENTRAL - 4 4 [facility] CENTRAL - 4 4 [facility] CENTRAL - 4 4 [facility] WM - 4 4 [facility] - [facility] 4 [facility] WM - 4 4 [facility] - 3 3 [facility] CENTRAL - 3 3 [facility] CENTRAL - 3 3 [facility] WM - 3 3 [facility] - 3 3 [facility] - 3 3 [facility] - 3 3 [facility] - 3 3 [facility] - 3 3 [facility] - 3 3 [facility] OTHER 2 2 [facility] - 2 2 [facility] 2 2 [facility] - 2 2 Y [facility] - 2 2 Y [facility] - 2 2 Y [facility] UNIVERS[facility] - 2 2 Y [facility] - 2 2 Y [facility] - 2 2 Y [facility] - 2 2 Y [facility] - 2 2 Y [facility] - 2 2 Y [facility] WM - 2 2 [facility] WM - 2 2 [facility] WM - 2 2 [facility] WM - 2 2 [facility] WM - 2 2 [facility] WM - 2 2 [facility] WM - 2 2 [facility] [place] 0 0 [facility] [place] - 9 9 [facility] [place] - 9 9 [facility] [place] - 8 8 [facility]
--- OUTSIDE RECORDS SUMMARY | 2017-01-09 17:58 | External Medical Summary Rpt | CCD ---
Author Author , ROCÍO BRANDONTRINIDAD Address Unknown Phone [email or web address] Providers Care Block Breaker Name Role Phone A Ashkan CALDWELL MD PSC, Erasmo Unavailable Unavailable Joaquin BOYCE MD, Unavailable Unavailable Joaquin CHRISTIE, AMANDA Unavailable Unavailable LOW ARNOLD KIMMY, ARNOLD Unavailable Unavailable KIMMY ATTILI ANI, ATTILI Unavailable Unavailable ANI [facility], [facility] Unavailable Unavailable [facility] Unavailable Unavailable [facility] Unavailable Unavailable MEDICAL GROUP, [facility] Unavailable Unavailable [facility], [facility] Unavailable Unavailable [facility], Unavailable Unavailable [facility] Unavailable Unavailable [facility], [facility], Unavailable Unavailable [facility] CROSSFIELD, DANNITA, Unavailable Unavailable CROSSFIELD, DANNITA ANDREI CHARLES, Unavailable Unavailable ANDREI CHARLES DISANTIS LY[facility], Unavailable Unavailable [facility], [facility] Unavailable Unavailable WOODSON JERICA, Unavailable Unavailable WOODSON JERICA [facility] Unavailable Unavailable INC, [facility] Unavailable Unavailable HOSPITAL P, [facility] Unavailable Unavailable THEE JAYESH A, Unavailable Unavailable THEE JAYESH A [facility], Unavailable Unavailable [facility], [facility]available Unavailable [facility], Unavailable Unavailable [facility] Unavailable Unavailable [facility], [facility] KILPELA JEA, KILPELA Unavailable [...] PHARM #[id number] [facility] Unavailable Unavailable [id number] # [id number], [facility] [id number] # [id number] JONAS LEON, JONAS Unavailable Unavailable [facility] Unavailable Unavailable [facility], [facility], Unavailable Unavailable [facility], Unavailable Unavailable [facility] Unavailable Unavailable [facility] [...] ASSOC RIGHT BRONCHUS/ARELY NG J984 OTHER 10-27-2016 [facility] 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 10-27-2016 [facility] PULMONARY [facility] NODULE OMAHA C3490 MALIGNANT 10-23-2016 [facility] NEOPLASM HOME UNS PART MEDICAL UNS EQUIPME BRONCHUS/ARELY NG J449 CHRONIC 10-23-2016 [facility] OBSTRUCTIVE HOME PULMONARY MEDICAL DISEASE UNS EQUIPME B3749 OTHER 09-23-2016 A Ashkan CALDWELL UROGENITAL PSC CANDIDIASIS G894 CHRONIC 09-23-2016 A Ashkan CALDWELL PAIN PSC SYNDROME J9610 CHRONIC 07-30-2016 [facility] SERV FAIL UNS FOUNDATION HYPOXIA/HYP ERCAPNIA V17081 PERSONAL HX 07-30-2016 [facility] MALIG SERV NEOPLASM FOUNDATION BRONCHUS & LUNG R0602 SHORTNESS 07-07-2016 [facility] P I10 ESSENTIAL 06-19-2016 [facility] HYPERTENSIO INC N J209 ACUTE 06-19-2016 [facility]PECIFIED [facility]OSPITAL P J440 COPD WITH 06-19-2016 [facility] RESPIRATORY INFECTION J441 CHRONIC 06-19-2016 [facility] PUL[facility]OSPITAL P DZ W/EXACERBAT ION N289 DISORDER OF 06-19-2016 [facility]TER [facility] UNSPECIFIED R0600 DYSPNEA 06-19-2016 [facility] UNSPECIFIED MEM HOS[facility] INC Y56568 PERSONAL 06-19-2016 [facility] HISTORY OF PHYSICIANS, NICOTINE PLLC DEPENDENCE Z9981 DEPENDENCE 06-19-2016 [facility] P L OXYGEN R05 COUGH 06-07-2016 [facility] R0989 OTH SPEC SX 06-07-2016 [facility] THE IMAGING ASS CIRC & RESP SYS R918 OTHER 06-07-2016 [facility] NONSPECIFIC MEM [facility] ABNORMAL INC FINDING OF LUNG FIELD M86298 OTHER LONG 06-07-2016 [facility] TERM MEM HOSP CURRENT INC DRUG THERAPY C3411 MALIGNANT 04-28-2016 [facility] NEOPLASM HEALTH UPPER LOBE MEDICAL RT GROUP BRONCHUS/ARELY NG M810 AGE-RELATED 04-28-2016 [facility]ALTH OSTEOPOROSI MEDICAL S W/O GROUP CURRNT PATH FX R222 LOCALIZED 03-22-2016 [facility] SWELLING MEDICAL MASS AND LUMP TRUNK R040 EPISTAXIS 03-21-2016 [facility] PH[facility]ICIANS, PLLC C3410 MALIGNANT 08-09-2015 [facility] NEOPLASM HEALTH UPPER LOBE [place] UNS BRONCHUS/ARELY NG S08489 OTHER 08-09-2015 [facility] KYPHOSIS HEALTH SITE [place] UNSPECIFIED H6980 OTHER SPEC 03-18-2015 A Ashkan DUMONT MD PSYCHIATRIC EUSTACHIAN TUBE UNS EAR Z923 PERSONAL 02-13-2015 [facility] HISTORY OF [facility] IRRADIATION HOSP D649 ANEMIA 12-17-2014 [facility] UNSPECIFIED HEALTH MEDICAL GROUP P71421 CUTANEOUS 11-21-2014 A Ashkan CALDWELL ABSCESS OF PSYCHIATRIC LIMB UNSPECIFIED Z23 ENCOUNTER 11-21-2014 A Ashkan CHRISTIANSON MD PSYCHIATRIC IMMUNIZATIO N M546 PAIN IN 11-15-2014 [facility] SPINE ASSOC D7640OW PATHOLOGICA 11-15-2014 [facility] L FX OTH [facility] SITE HOSP INITIAL ENC FRACTURE 08194 INTRINSIC 11-01-2014 YOUR ASTHMA, PHARMACY UNSPECIFIED LLC 496 CHRONIC 11-01-2014 [facility] NEC 3384 CHRONIC 10-29-2014 A Ashkan DAVIDSON MD PSYCHIATRIC SYNDROME 33583 UNSPECIFIED 10-29-2014 A Ashkan MOORE MD PSYCHIATRIC 7823 EDEMA 10-29-2014 A Ashkan CALDWELL MD PSYCHIATRIC 24689 NAUSEA 10-29-2014 A Ashkan WOODSON MD PSYCHIATRIC 7866 SWELLING, 10-21-2014 [facility] MASS, OR MEDCIAL LUMP IN CHEST 1629 MALIGNANT 09-20-2014 [facility] NEOPLASM MEDICAL BRONCHUS&ARELY NG UNSPEC SITE 1623 MALIGNANT 09-17-2014 [facility] NEOPLASM HEALTH UPPER LOBE MEDICAL BRONCHUS OR GROUP LUNG 2859 UNSPECIFIED 09-17-2014 [facility] ANEMIA HEALTH MEDICAL GROUP V661 CONVALESCEN 09-17-2014 [facility] CE HEALTH FOLLOWING MEDICAL RADIOTHERAP GROUP Y V662 CONVALESCEN 09-17-2014 [facility] CE HEALTH FOLLOWING MEDICAL CHEMOTHERAP GROUP Y 18775 CHRONIC 09-10-2014 [facility] OBSTRUCTIVE [facility] ASTHMA HOSP UNSPECIFIED 06524 SENILE 09-10-2014 [facility] OSTEOPOROSI [facility] S HOSP V1011 PERSONAL 09-10-2014 [facility] HISTORY [facility] MALIG HOSP NEOPLASM BRONCHUS&[place] 13754 ESOPHAGEAL 08-20-2014 A Ashkan CALDWELL REFLUX PSC 68000 DISORDER OF 08-06-2014 [facility] BONE AND [facility] CARTILAGE HOSP UNSPECIFIED 35364 LOSS OF 08-06-2014 [facility] HEIGHT [facility] 07913 PATHOLOGIC 06-14-2014 [facility] FRACTURE OF RADIOLOGY VERTEBRAE ASSOC 52736 OTHER 04-30-2014 A Ashkan WILLIAMSON MD PSC PAIN 4011 ESSENTIAL 04-25-2014 [facility] HYPERTENSIO [facility] N, BENIGN HOSP V5412 AFTERCARE 03-02-2014 [facility] FRACTURE LOWER ARM V5878 AFTERCARE 03-02-2014 [facility] FOLLOW PHYSICIANS SURGERY GROUP MUSCULOSKEL SYSTEM NEC V571 OTHER 02-16-2014 [facility] THERAPY INC 7248 OTHER 01-26-2014 A Ashkan CALDWELL SYMPTOMS PSC REFERABLE TO BACK 8180 ILL-DEFINED 01-26-2014 A Ashkan RECIO MD PSC FRACTURES OF UPPER LIMB 67790 PAIN IN 01-18-2014 [facility]INT, MEDICAL FOREARM IMAGING ASS 82463 OTHER 01-18-2014 [facility]OS[facility] FRACTURES HOSPITAL P OF DISTAL END OF RADIUS 58562 OPEN WOUND 01-18-2014 [facility] W[facility]ST [facility] WITHOUT HOSPITAL P MENTION COMPLICATIO N E8889 UNSPECIFIED 01-18-2014 [facility] P 4019 UNSPECIFIED 01-17-2014 [facility] ESSENTIAL [facility] HYPERTENSIO INC N 04631 ASTHMA, 01-17-2014 [facility] UNSPECIFIED [facility] , INC UNSPECIFIED STATUS 04306 CLOSED 01-17-2014 [facility] FRACTURE MEM HOS[facility] UNSPECIFIED INC PART RAMUS MANDIBLE 9221 CONTUSION 01-17-2014 WM OF CHEST MEM HOS[facility] WALL INC V1582 PERS HX 01-17-2014 [facility] TOBACCO USE MEM HOSP PRESENTING INC [facility]ZARDS [facility] 7273 OTHER 01-08-2014 A Ashkan CALDWELL BURSITIS PSC DISORDERS 2662 OTHER 11-13-2013 A Ashkan CALDWELL BBRIAN BUCKNER PSC DEFICIENCIE S 5853 CHRONIC 10-30-2013 [facility] K[facility]NEY [facility] DISEASE INC STAGE III (MODERATE) 7944 NONSPECIFIC 10-30-2013 [facility] MEDICAL RESULTS IMAGING ASS KIDNEY FUNCTION STUDY 1122 CANDIDIASIS 10-26-2013 A Ashkan PALM MD PSC UROGENITAL SITES 2809 UNSPECIFIED 10-26-2013 A Ashkan CALDWELL IRON PSC DEFICIENCY ANEMIA V0481 NEED 10-26-2013 A Ashkan CALDWELL PROPHYLACTI PSYCHIATRIC C VACCINATION &INOCULATIO N FLU 52592 OBSTRUCTIVE 09-28-2013 MALCOM CHRONIC DIONICIO BRONCHITIS WITHOUT EXACERBAT 30651 SHORTNESS 09-28-2013 ROSIEOUANAKIS OF BREATH DIONICIO 27155 OTHER 09-25-2013 [facility] FIR NONSPECIFIC ABNORMAL FINDING OF LUNG FIELD 47160 UNSPECIFIED 07-24-2013 [facility] VAG[facility] AND VULVOVAGINI TIS 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 7821 RASH AND 06-30-2013 KILPELA JEA OTHER NONSPECIFIC SKIN ERUPTION 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 13517 OTHER 06-19-2013 [facility] ANT DYSPNEA AND RESPIRATORY ABNORMALITI ES 7932 NONSPC ABN 06-19-2013 [facility] ANT FINDNG RAD&OTH EXAM OTH INTRTHOR ORGN 21322 HYPOXEMIA 05-31-2013 TZOUANAKIS DIONICIO 32831 NAUSEA WITH 05-25-2013 [facility]OMITING [facility] 4928 OTHER 05-19-2013 [facility] EMPHYSEMA [facility] 7295 PAIN IN 05-19-2013 JONAS LEON SOFT TISSUES OF LIMB 75820 SWELLING OF 05-19-2013 [facility] LIMB [facility] V5869 LONG-TERM 05-19-2013 [facility] (CURRENT) [facility] USE OF HOSP OTHER MEDICATIONS 6828 CELLULITIS 05-15-2013 KILPELA JEA AND ABSCESS OF OTHER SPECIFIED SITE 7881 DYSURIA 05-08-2013 KILPELA JEA 7862 COUGH 04-14-2013 KILPELA JEA 21236 PAIN IN 02-20-2013 WM JOINT, MEM HOSP LOWER LEG INC 9597 INJURY 02-09-2013 KILPELA JEA OTHER&UNSPE CIFIED KNEE LEG ANKLE&FOOT 71278 PAIN IN 12-05-2012 A Ashkan DUMONT MD PSC MULTIPLE SITES 02473 BURN TRUNK 12-05-2012 A Ashkan QUIROS MD PSC DEGREE OTHER&MULTI PLE SITES 490 BRONCHITIS 10-12-2012 A Ashkan ROBERTS MD PSC SPECIFIED ACUTE OR CHRONIC 1625 MALIGNANT 09-21-2012 [facility] NEOPLASM [facility] LOWER LOBE HOSP BRONCHUS OR LUNG V671 RADIOTHERAP 09-21-2012 [facility] Y FOLLOW-UP [facility] EXAMINATION V672 CHEMOTHERAP 09-21-2012 [facility] Y [facility]LLOW-UP [facility] EXAMINATION 4660 ACUTE 07-28-2012 A Ashkan SMITH MD PSC 3383 NEOPLASM 07-19-2012 [facility] FIR RELATED PAIN ACUTE CHRONIC V580 RADIOTHERAP 07-19-2012 [facility] Y [facility] 24164 CHRONIC 07-09-2012 [facility] RESPIRATORY MEM HOS[facility] FAILURE INC 49270 UNSPECIFIED 06-27-2012 A Ashkan CALDWELL MD PSC OSTEOPOROSI S 14655 WHEEZING 06-27-2012 A Ashkan CALDWELL MD PSC 5271 HYPERTROPHY 04-14-2012 [facility] OF [facility] SALIVARY [facility]OS[facility] GLAND 4779 ALLERGIC 04-11-2012 KILPELA JEA RHINITIS CAUSE UNSPECIFIED 7820 DISTURBANCE 04-11-2012 KILPELA JEA OF SKIN SENSATION 4619 ACUTE 03-23-2012 KILPELA JEA SINUSITIS, UNSPECIFIED 26077 URINARY 03-23-2012 KILPELA JEA FREQUENCY V5811 ENCOUNTER 02-16-2012 [facility] FOR [facility] ANTINEOPLAS HOSP TIC CHEMOTHERAP Y 5122 POSTOPERATI 01-14-2012 [facility] 76008 OTHER 01-14-2012 [facility] PNEUMOTHORA X 5119 UNSPECIFIED 01-07-2012 ATTILI ANI PLEURAL EFFUSION 1970 SECONDARY 01-06-2012 AMANDA LOW MALIGNANT NEOPLASM OF LUNG V550 ATTENTION 12-28-2011 EVELYN CHARITY TO TRACHEOSTOM Y 5180 PULMONARY 12-26-2011 DISANTIS COLLAPSE LYNNETTE 18809 EMPHYSEMA 12-26-2011 DISANTIS RESULTING LYNNETTE FROM A PROCEDURE NEC 1639 MALIGNANT 12-25-2011 [facility] PLEURA HOSPI UNSPECIFIED SITE V679 UNSPECIFIED 12-25-2011 ATTILI ANI FOLLOW-UP EXAMINATION V8801 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-2011 [facility]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 43859 GENERALIZED 12-17-2011 FARZANA HAZEL OSTEOARTHRO SIS UNSPECIFIED SITE 63417 OSTEOARTHRO 12-16-2011 [facility] WHETHER GEN/LOC UNSPEC SITE V711 OBSERVATION 12-09-2011 WOODSON FOR JERICA SUSPECTED MALIGNANT NEOPLASM 2357 NEOPLASM 12-08-2011 OTILIA STEWART UNCERTAIN BEHAVIOR [place] BRONCHUS&[place] [address] COR 12-08-2011 ATTILI ANI ATHEROSLERO UNSPEC TYPE VESSEL [place] RAN[place]IA/TANIKA T 500 COAL 12-08-2011 OTILIA STEWART WORKERS PNEUMOCONIO SIS 7969 OTHER 12-08-2011 PUR[facility] MAT NONSPECIFIC ABNORMAL FINDING 14417 OTHER 11-18-2011 [facility] DISEASES OF MEDICAL LUNG NOT IMAGING ASS ELSEWHERE CLASSIFIED 98135 NUCLEAR 10-19-2011 [facility] SCLEROSIS 67870 PAIN IN 10-13-2011 [facility] DIONICIO JOINT, SITE UNSPECIFIED V036 NEED PROPH 09-30-2011 RHONA JERICA VACC&INOCUL AT AGAINST PERTUSS ALONE 3319 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 3558 UNSPECIFIED 09-20-2011 [facility]OS[facility] MONONEURITI INC S OF LOWER LIMB 4439 UNSPECIFIED 09-18-2011 [facility] PER[facility]HERAL [facility] VASCULAR IMAGING ASS DISEASE 46120 ATHEROSLERO 09-08-2011 RHONA [facility] RANCH[place] ART EXTREMITIES W/ULCERATIO N 8911 OPEN WOUND 09-08-2011 RHONA JERICA OF KNEE LEG AND ANKLE COMPLICATED 40573 CHEST PAIN 09-02-2011 [facility] UNSPECIFIED MEDICAL IMAGING ASS 03946 PAINFUL 09-02-2011 [facility] RESPIRATION [facility] INC 8052 CLOS FX 09-02-2011 WM DORS MEM HOSP VERTEBRA INC W/O MENTION SP CORD INJURY 13508 OSTEOARTHRO 07-20-2011 EMPI INC S INVLV MX SITES BUT NOT SPEC GEN 7245 UNSPECIFIED 07-20-2011 E[facility] INC BACKACHE 72777 ENTHESOPATH 07-10-2011 PAWSAT MAR Y OF UNSPECIFIED SITE 9243 CONTUSION 07-10-2011 WM OF TOE MEM HOSP INC 38411 OBSTRUCTIVE 05-22-2011 ARNOLD KIMMY CHRONIC BRONCHITIS WITH EXACERBATIO N 24227 PAIN IN 05-22-2011 SARITHA KIMMY JOINT, ANKLE AND FOOT 2382 NEOPLASM OF 09-23-2010 [facility] OF CLINIC SKIN 4910 SIMPLE 06-03-2010 [facility] CHRONIC MEDICAL BRONCHITIS CLINIC V7612 OTHER 11-21-2009 [facility] [place] SCREENING RADIOLOGY MAMMOGRAM 2720 PURE 11-20-2009 LAB [facility] HYPERCHOLES [employer] 2724 OTHER AND 11-20-2009 [facility] UNSPECIFIED MEDICAL CLINIC HYPERLIPIDE YAAKOV 7242 LUMBAGO 10-30-2009 [facility] MEDICAL CLINIC 22748 OSTEOARTHRO 11-05-2008 [facility] SIS UNSPEC L REHAB WHETHER ASSOC PSC GEN/LOC LOWER LEG 7197 DIFFICULTY 11-05-2008 PROFESSION[facility] IN WALKING L REHAB ASSOC PSC 66638 GEN 10-10-2008 [facility] OSTEOARTHRO MEDICAL SIS CLINIC INVOLVING MULTIPLE SITES V4981 ASYMPTOMATI 09-04-2008 [facility] [place] C RADIOLOGY POSTMENOPAU REGINE STATUS 27008 CRAMP OF 08-30-2008 [facility] LIMB [facility]ICAL CLINIC 92276 OTHER 09-22-2007 [place], CHRONIC JAYESH A ALLERGIC CONJUNCTIVI TIS 6929 CONTACT 09-19-2007 [facility] DERMATITIS& MEDICAL OTHER CLINIC ECZEMA DUE [...] MG #3 93 TA 8 BL ET [place] 00 09 09 1 12 5 RI [...] RU 8 O P # 03 93 [place] 00 09 09 1 12 5 RI [...] E ve 54 20 20 0 AI WA 86 08 08 D CH 7 PH [...] DOS Code Location Performer Comment THORACOSC [address] [facility] 2 Y Y PLEURAL [facility] BIOPSY THORACOSC [address] [facility] LUNG 2 Y Y BIOPSY [facility] SIMPLE [address] [facility] 2 Y Y OF OTHER [facility] LYMPHATIC STRUCTURE Encounters Encounter Start End Date Code Location Performer Type Date [facility] TENRIISM - 7 7 [facility] WM - 7 7 [facility] WM - 7 7 [facility] WM - 7 7 [facility] - 7 7 [facility] WM - 7 7 [facility] - 6 6 [facility] - 6 6 [facility] - 6 6 [facility] - 6 6 [facility] - 6 6 [facility]PATI[facility] CENTRAL - 5 5 [facility] OUTPATIEN [facility] CENTRAL - 5 5 [facility] OUTPATIEN [facility] CENTRAL - 5 5 [facility] OUTPATIEN [facility] CENTRAL - 5 5 [facility] OUTPATIEN [facility] CENTRAL - 5 5 [facility] OUTPATIEN [facility] CENTRAL - 5 5 [facility] OUTPATIEN [facility] CENTRAL - 5 5 [facility] OUTPATIEN [facility] CENTRAL - 5 5 [facility] OUTPATIEN [facility] CENTRAL - 5 5 [facility] OUTPATIEN [facility] WM - 5 5 [facility] WM - 5 5 [facility] WM - 5 5 [facility] WM - 4 4 [facility] - [facility] - 4 4 [facility] WM - 4 4 [facility]PAT[facility] CENTRAL - 4 4 [facility]ISM OUTPATIEN [facility] WM - 4 4 [facility]PATI[facility] CENTRAL - 4 4 [facility] OUTPATIEN [facility] CENTRAL - 4 4 [facility]ISM OUTPATIEN [facility] CENTRAL - 4 4 [facility] OUTPATIEN [facility] WM - 4 4 [facility] CENTRAL - 4 4 [facility] OUTPATIEN [facility] WM - 4 4 [facility] CENTRAL - 3 3 TENRIISM OUTPATIEN [facility] CENTRAL - 3 3 [facility]ISM OUTPATIEN [facility] CENTRAL - 3 3 [facility] OUTPATIEN [facility] WM - 3 3 [facility] WM - 3 3 [facility] WM - 3 3 [facility] CENTRAL - 3 3 [facility] C[facility]TRAL - 3 3 [facility] CENTRAL - 3 3 [facility] CENTRAL - 3 3 [facility] UNIVERSIT - OTHER 2 2 Y [facility] CENTRAL - 2 2 [facility] - 2 2 Y [facility] UNIVERSIT - 2 2 Y [facility] UNIVERS[facility] - 2 2 Y [facility] UNIVERS[facility] - 2 2 Y [facility] UNIVERSIT - 2 2 Y [facility] UNIVERS[facility] - 2 2 Y [facility] UNIVERS[facility] - 2 2 Y [facility] UNIVERS[facility] - 2 2 Y [facility]IVERS[facility] - 2 2 Y [facility]IVERS[facility] - 2 2 Y [facility] WM - 2 2 [facility] WM - 2 2 [facility] WM - 2 2 [facility] WM - 2 2 [facility] WM - 2 2 [facility] WM - 2 2 [facility] WM - 2 2 [facility] [place] [facility] [address] [facility] [place] - [address] [facility] [place] - [address] [facility] [place] - 8 8 [facility]
--- OUTSIDE RECORDS SUMMARY | 2017-01-09 17:59 | External Medical Summary Rpt ---
Author Author ROCÍO Acuna, [employer] Organization [employer] Address Unknown Phone Unavailable
--- OUTSIDE RECORDS SUMMARY | 2017-01-09 17:59 | External Medical Summary Rpt | CCD ---
Author Author , ROCÍO ALFORD Address Unknown Phone [email or web address] Immunization Name Date Rout CVX Reac Dose Comm Prov Is Faci e tion ent ider Refu lity Give sed n Infl 09-2 135 999 Hist D203 No D203 uenz 9-20 oric 45 45 a, 16 al High Info rmat Dose ion - Sour ce Unsp ecif ied
--- OUTSIDE RECORDS SUMMARY | 2017-01-09 17:59 | External Medical Summary Rpt | CCD ---
Author Author , ROCÍO ALFORD Address Unknown Phone [email or web address] Immunization Name Date Rout CVX Reac Dose Comm Prov Is Faci e tion ent ider Refu lity Give sed n Infl 09-2 135 999 Hist D203 No D203 uenz 9-20 oric 45 45 a, 16 al High Info rmat Dose ion - Sour ce Unsp ecif ied
[2017-01-09] MEDS ORDERED: PREDNISONE 10MG10 MG PO (18:40)
[2017-01-09 19:00] VITALS: BP 101/63
--- NOTE | 2017-01-10 21:48 | RADIOLOGY REPORT PS360 ---
CHEST(2 VIEWS-NOT PORTABLE) Ordering physician: Marcus Bravo MD Age: 71 years Female INDICATION: Short of breathSOA COPD history PROCEDURE: CHEST(2 VIEWS-NOT PORTABLE) FINDINGS: PA and lateral chest 05/21/2016 also June 2016 PCXR studies used for comparison. We again see the prominent right apical pleural and parenchymal scarring with superior retraction of the right john today's chest film is distorted with patient's chest rotated slightly to the right. However findings are at the right apex appears similar no significant new findings.. There is kyphosis of the upper T-spine with old stable compression fracture T6 and likely T4 mild compression T8. Minimal density at the anterior chest the lateral view appears stable. 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 Underlying COPD. Hyperexpansion. IMPRESSION ----- Nothing definitely acute Stable prominent right apical pleural & parenchymal scarring, with superior retraction right hilum. This is stable and similar to studies from earlier this year.. COPD. No acute findings. (Again I suspect this patient has had radiation right upper chest and apex with previous lung neoplasm identified in 2011. Ongoing follow-up CT in follow-up with with oncologist suggested)
== END 2017-01-09 19:00 | disposition home or self-care (01) ==
LOC: ER 16:55
PROVIDERS: Emergency Medicine
DX: J44.1 Chronic obstructive pulmonary disease with (acute) exacerbation (principal); R06.02 Shortness of breath; J45.909 Unspecified asthma, uncomplicated; I10 Essential (primary) hypertension; Z99.81 Dependence on supplemental oxygen; Z79.899 Other long term (current) drug therapy